=== PATIENT | female | born 1980 | race Caucasian/White ===

== ENCOUNTER 2019-06-18 00:10 | Day surgery (SDC) | payer OTHER, SELFPAY ==
[2019-06-11 14:06] VITALS: BMI 28.0
[2019-06-18 09:04] VITALS: BP 103/65; PULSE 65; RESP 16; TEMP 36.5; O2SAT 100
[2019-06-18] MEDS: LACTATED RINGERS 1,000 ML 150 ML IV CONT (09:29)
--- NOTE | 2019-06-18 09:34 | WPDANESEPPF ---
Anes - Initial Pre Proc Eval Procedure: Operation Date: 06/18/19 10:00 Proposed Procedures p Colonoscopy - Gómez Beaver MD Date/Time: 06/18/19 09:34 Surgeon: Gómez Beaver MD Pre Op Diagnosis: Diverticulitis Patient Data Age: 38 Gender: F Height: 4 ft 10 in Weight: 61.1 kg Last Vital Signs Temp 97.7 F 06/18/19 09:04 Pulse 65 06/18/19 09:04 Resp 16 06/18/19 09:04 BP 103/65 06/18/19 09:04 Pulse Ox 100 06/18/19 09:04 Allergies Allergy/AdvReac Type Severity Reaction Status Date / Time metoclopramide Allergy Mild DEPRESSION, Verified 06/18/19 09:15 IRRITABLE Home Medications Medication Instructions Recorded Confirmed Type bupropion HCl 150 mg 24 hr tablet, 150 mg PO QAM 04/27/19 06/18/19 History extended release Patient hx anesthesia problems: none Family hx anesthesia problems: none [facility] Past Medical History Medical History (Updated 06/18/19 @ 09:29 by Mariano Leahy MD) Anxiety Diverticulosis Social History Social History Smoking status: Never smoker Alcohol intake: never Gender identity (if verbalized by the patient): Female Anes - Eval Final PreProcedure Day of Procedure 06/18/19 09:34 Patient weight: normal Heart: regular rate and rhythm Lungs: clear to auscultation Airway: Mallampati scale class II Neurological: alert and oriented Last oral intake: >/= 8 hours ASA classification: II Emergent: no Anesthetic plan: proceed Anesthesia type and monitoring: general GIVS and standard monitoring Informed Consent: The patient's anesthetic plan and its attendant risks and benefits were discussed with the patient/family/POA. Questions were solicited and answers provided to the satisfaction of the patient/family/POA.
--- NOTE | 2019-06-18 09:39 | P.HP_ITS ---
History of Present Illness History of Present Illness Consent: Risks, benefits, and alternatives have been discussed and questions answered. Patient agrees to proceed with procedure. Chief complaint: Diverticulitis Narrative: Era Molina is a 38 year old female who recently had apparent diverticulitis with abnormality in the CT scan showing thickening in the sigmoid colon [facility] Past Medical History Medical History Anxiety Diverticulosis Family History Family History Grandparent Cerebrovascular accident Family history of lung cancer Other Family history of arthritis Social History Social History Smoking status: Never smoker Alcohol intake: never Gender identity (if verbalized by the patient): Female Meds Home Medications and Allergies Home Medications Medication Instructions Recorded Confirmed Type bupropion HCl 150 mg 24 hr tablet, 150 mg PO QAM 04/27/19 06/18/19 History extended release Allergies Allergy/AdvReac Type Severity Reaction Status Date / Time metoclopramide Allergy Mild DEPRESSION, Verified 06/18/19 09:15 IRRITABLE Vital Signs Vital Signs - 24 hr 06/18/19 09:04 Temperature 36.5 C Pulse Rate 65 Respiratory Rate 16 Blood Pressure 103/65 Pulse Oximetry 100 Exam Resp: Auscultation: clear to auscultation bilaterally Cardio: Rate: regular rate Rhythm: regular rhythm GI: GI Palp: Yes Soft to palpation and No Tenderness to palpation present (GI) Assessment and Plan Assessment and plan (1) Change in bowel habits: Code(s): R19.4 - Change in bowel habit Status: Acute Assessment and Plan: Colonoscopy with possible biopsy or polypectomy or cautery or injection of substances.
[2019-06-18 10:13] VITALS: BP 87/64; PULSE 70; RESP 20; O2SAT 100
[2019-06-18 10:23] VITALS: BP 97/50; PULSE 69; RESP 18; O2SAT 100
[2019-06-18 10:33] VITALS: BP 105/80; PULSE 67; RESP 20; O2SAT 100
== END 2019-06-18 10:47 | disposition home or self-care (01) ==
PROVIDERS: PCP Family Medicine; Visit Provider Internal Medicine Gastroenterology
PROC: 0DJD8ZZ Inspection of Lower Intestinal Tract, Via Natural or Artificial Opening Endoscopic (ICD-10-PCS; CPT 45378; principal; 2019-06-18 10:00)
DX: Z09 Encounter for follow-up examination after completed treatment for conditions other than malignant neoplasm (principal); R19.4 Change in bowel habit; K64.4 Residual hemorrhoidal skin tags; K57.30 Diverticulosis of large intestine without perforation or abscess without bleeding; Z87.19 Personal history of other diseases of the digestive system; F41.9 Anxiety disorder, unspecified
CPT/HCPCS: 45378; J2704; J7120

== ENCOUNTER 2019-06-29 16:00 | Emergency (ER) | payer OTHER, SELFPAY ==
[2019-06-29 16:10] VITALS: BP 106/69; PULSE 84; RESP 18; TEMP 37.4; O2SAT 99
--- NOTE | 2019-06-29 16:27 | ED.GENADULT ---
HPI - General Adult General Chief complaint: Upper Respiratory Infection Stated complaint: sore throat aches chills fever Time Seen by Provider: 06/29/19 16:48 Source: patient and RN notes reviewed Mode of arrival: ambulatory Limitations: no limitations History of Present Illness HPI narrative: This is a 38 years old female presented office for evaluation of sore throat since last night. Associated with fever, feeling achy, with a little cough. She took ibuprofen and Rubitussin for her symptoms. She did not receive influenza vaccine for the season. She does not smoke. Denies sick contact. Related Data Home Medications Medication Instructions Recorded Confirmed bupropion HCl 150 mg PO QAM 06/29/19 06/29/19 Allergies Allergy/AdvReac Type Severity Reaction Status Date / Time metoclopramide Allergy Mild DEPRESSION, Verified 06/18/19 09:15 IRRITABLE Review of Systems Review of Systems: Narrative: CONSTITUTIONAL: Reports fever, chills, sweats. ENT: Reports rhinorrhea, congestion, sore throat CARDIOVASCULAR: Denies chest pain RESPIRATORY: Denies dyspnea, wheezing. Reports little cough GASTROINTESTINAL: Denies abdominal pain, nausea, vomiting, diarrhea. GENITOURINARY: Denies urinary symptoms or discharge SKIN: Denies rash MUSCULOSKELETAL: Denies acute back pain NEUROLOGIC: Denies lightheaded PMFSH Past Medical History Medical History Anxiety Diverticulosis Family History Family History Grandparent Cerebrovascular accident Family history of lung cancer Other Family history of arthritis Social History Social History Smoking status: Never smoker Alcohol intake: never Gender identity (if verbalized by the patient): Female Comments At time of signature, I agree with nursing past medical, surgical, social and family history. There is no relevant family history pertinent to the presenting complaint. Exam Narrative: Exam Narrative: GENERAL: This is a well-nourished, well-developed patient,ill apparent but not in acute distress. EYES: Sclera clear/white. Vision is grossly intact. EARS: External ears normal, auditory canals clear and without drainage, TMs normal without perforation. Hearing grossly intact. NOSE: External nose normal with no obvious nasal discharge, nares without redness, no rhinorrhea. THROAT: Mucous membranes moist, posterior pharynx clear. NECK: Neck supple, non-tender without lymphadenopathy, masses or thyromegaly. CARDIOVASCULAR: Regular rate and rhythm without murmurs, gallops, or rubs. RESPIRATORY: Clear to auscultation. Breath sounds equal bilaterally. No wheezes, rales, or rhonchi. GASTROINTESTINAL: Abdomen soft, non-tender, nondistended. Bowel sounds are active. No guarding. SKIN: warm, intact with no suspicious lesions or rash, good texture and turgor. NEURO: awake, alert, and oriented to person, place and time. There were no obvious focal neurologic abnormalities. Steady gait [place] Coma Scale Eye Opening: Spontaneous 4 [place] Coma Scale Motor: Obeys Commands 6 [place] Coma Scale Verbal: Oriented 5 Course Vital Signs Vital signs: Vital Signs Temperature 99.4 F 06/29/19 16:10 Pulse Rate 84 06/29/19 16:10 Respiratory Rate 18 06/29/19 16:10 Blood Pressure 106/69 06/29/19 16:10 Pulse Oximetry 99 06/29/19 16:10 Temperature 99.4 F 06/29/19 16:10 Pulse Rate 84 06/29/19 16:10 Respiratory Rate 18 06/29/19 16:10 Blood Pressure 106/69 06/29/19 16:10 Pulse Oximetry 99 06/29/19 16:10 Medical Decision Making MDM Narrative Medical decision making narrative: Discharge instructions reviewed with patient, as well as provided in writing per nursing staff. The instructions also include specific and strict return/GO TO THE ER as well as f/u information. All questions hav
== END 2019-06-29 16:55 | disposition home or self-care (01) ==
PROVIDERS: Emergency Provider Nurse Practitioner; PCP Family Medicine
DX: J11.1 Influenza due to unidentified influenza virus with other respiratory manifestations (principal)
CPT/HCPCS: 87081; 87804; 87880; 99213; G0463

== ENCOUNTER → 2019-07-02 15:18 | Outpatient (CLI) | payer OTHER, SELFPAY ==
--- NOTE | ~2019-07-02 | US_ITS ---
EXAMINATION: US pelvic complete w TV DATE: 07/02/2019 15:33 INDICATION: Ovarian cyst. Bilateral adnexal pain. Comparison:Ultrasound dated 01/03/2019 TECHNIQUE: Multiple transabdominal and endovaginal sonographic images of the pelvis performed. FINDINGS: The uterus measures 6.4 x 3.8 x 4.2 cm. Uterus is retroverted. The endometrial complex sandie ures 7 mm. The right ovary measures 2.2 x 2.5 x 3.1 cm and the left ovary measures 3.1 x 2 x 2 cm. There are sm all follicles in each ovary. There is no free fluid in the pelvis. There are no abnormal masses seen on either side. IMPRESSION: 1. Unremarkable pelvic ultrasound. Reviewed, dictated and finalized at location A. 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
== END ==
PROVIDERS: PCP Family Medicine; Visit Provider Obstetrics & Gynecology
DX: N83.209 Unspecified ovarian cyst, unspecified side (principal)
CPT/HCPCS: 76830; 76856

== ENCOUNTER → 2019-12-01 12:28 | Outpatient (CLI) | payer OTHER, SELFPAY ==
--- NOTE | ~2019-12-01 | XR_ITS ---
XR cervical spine 4-5V DATE: 12/01/2019 13:57 INDICATION: Neck pain TECHNIQUE: Standing AP, lateral, open-mouth, swimmer views COMPARISON: None FINDINGS: There is reversal of cervical curvature on lateral view. C1 and C2 are normally aligned and the odontoid process is intact. No fracture or dislocation or lock ed facet or prevertebral soft tissue swelling. Cervical interspaces are preserved. IMPRESSION: Reversal of cervical curvature Reviewed, dictated and finalized at location B.
--- NOTE | ~2019-12-01 | XR_ITS ---
XR thoracic spine 2V DATE: 12/01/2019 13:57 INDICATION: Back pain TECHNIQUE: Standing AP and lateral views COMPARISON: 12/01/2019 cervical spine FINDINGS: Minimal upper thoracic dextroscoliosis. There is mild levoscoliosis of the mid and lower th oracic spine. No fracture or dislocation or bone destruction. The thoracic pedicles are intact. No paraspinal soft tissue thickening. Surgical clips overlie the right upper quadrant, likely due to cholecystectomy. IMPRESSION: Mild thoracic scoliosis Reviewed, dictated and finalized at location B. IMPRESSION: Mild thoracic scoliosis
== END ==
PROVIDERS: Visit Provider Nurse Practitioner Family
DX: M54.9 Dorsalgia, unspecified (principal); M41.9 Scoliosis, unspecified
CPT/HCPCS: 72050; 72070

== ENCOUNTER 2020-01-19 16:49 | Outpatient (CLI) | payer OTHER, SELFPAY ==
--- NOTE | ~2020-01-19 | CT_ITS ---
EXAMINATION: CT abdomen pelvis w con EXAM DATE: 01/19/2020 17:22 INDICATION: Left lower quadrant pain. TECHNIQUE: Spiral CT of the abdomen and pelvis was performed following intravenous injection of 100 m L Omnipaque 350. Axial, coronal and sagittal images were reviewed. The dose-length product (DLP) fo r this examination was 485.19 mGy-cm. The exposure was tailored according to patient size (auto mA e xposure control), and iterative reconstruction (ASIR) was used as additional dose reduction technique . There is no prior study for comparison. FINDINGS: There is right liver lobe 1 cm lesion with small region peripheral nodular enhancement, a h emangioma, size unchanged compared to prior study. The liver, spleen, adrenal glands and pancreas ar e otherwise unremarkable. There are cholecystectomy clips. Portal and splenic veins are patent. Ki dneys enhance symmetrically. There is no hydronephrosis. The uterus is retroverted and morphologic ally normal. The ovaries are normal in size. The bladder is unremarkable. There is no retroperitone al or pelvic lymphadenopathy. The appendix is normal. The stomach and small bowel are unremarkable. There is mild sigmoid colonic diverticulosis. There is no adjacent inflammatory change to suggest diverticulitis. No free intrape ritoneal gas. The heart is normal in size. There are no pericardial or pleural effusions. The katherin g bases are unremarkable. The bones are unremarkable. IMPRESSION: 1. No acute intra-abdominal findings. 2. Mild sigmoid diverticulosis. 3. Small liver hemangioma. Reviewed, dictated and finalized at location A.
== END 2020-01-19 16:50 | disposition home or self-care (01) ==
PROVIDERS: PCP Family Medicine; Visit Provider Nurse Practitioner Family
DX: R10.32 Left lower quadrant pain (principal); K57.30 Diverticulosis of large intestine without perforation or abscess without bleeding
CPT/HCPCS: 74177; Q9967

== ENCOUNTER → 2020-09-15 11:18 | Outpatient (CLI) | payer OTHER, SELFPAY ==
--- NOTE | ~2020-09-15 | MM_ITS ---
EXAMINATION: MM screening augustina BI w luis enrique HISTORY: Screening TECHNIQUE: Craniocaudal and mediolateral oblique 3-D tomosynthesis images were obtained and synthetic 2-D images were generated. CAD analysis was submitted and interpreted. COMPARISON: No prior mammogram is available for comparison at this institution. BREAST PARENCHYMAL COMPOSITION: The breasts are heterogeneously dense, which may obscure small masses . FINDINGS: There is no evidence of suspicious mass, calcification, or architectural distortion to sugg est malignancy in either breast. There has been no suspicious interval change. IMPRESSION: 1. No mammographic evidence of malignancy. 2. Recommend routine screening mammography in one year. BI-RADS Category 1: Negative Reviewed, dictated and finalized at location A.
== END ==
PROVIDERS: PCP Family Medicine; Visit Provider Nurse Practitioner Family
DX: Z12.31 Encounter for screening mammogram for malignant neoplasm of breast (principal)
CPT/HCPCS: 77063; 77067

== ENCOUNTER → 2021-06-01 13:30 | Outpatient (CLI) | payer OTHER, SELFPAY ==
--- NOTE | ~2021-06-01 | XR_ITS ---
EXAMINATION: XR finger 1st RT min 2V INDICATION: Right wrist and finger pain TECHNIQUE: Three views of the right first finger are obtained. COMPARISON: None available FINDINGS: Bone alignment is normal. There is no fracture. The joint spaces are maintained. The soft t issues are unremarkable. IMPRESSION: 1. No acute osseous abnormality. Reviewed, dictated and finalized at location F. NOMIST
--- NOTE | ~2021-06-01 | XR_ITS ---
XR wrist RT 2V DATE: 06/01/2021 13:40 INDICATION: Right wrist pain TECHNIQUE: AP and lateral views COMPARISON: None FINDINGS: No fracture or dislocation, periosteal reaction or bone destruction. No erosive changes. Joint spaces are well preserved. IMPRESSION: Negative Reviewed, dictated and finalized at location A. RNAL RECRUITER IMPRESSION: Negative
== END ==
PROVIDERS: PCP Family Medicine; Visit Provider Nurse Practitioner Family
DX: M25.531 Pain in right wrist (principal); M25.541 Pain in joints of right hand
CPT/HCPCS: 73100; 73140

== ENCOUNTER 2021-11-12 10:57 | Emergency (ER) | payer OTHER, SELFPAY ==
--- NOTE | ~2021-11-12 | CT_ITS ---
EXAMINATION: CT abdomen pelvis wo con DATE: 11/12/2021 12:15 INDICATION: Lower abdominal pain, groin pain TECHNIQUE: Computed tomography (CT) of the abdomen and pelvis was performed without intravenous contr ast. Automated exposure control and iterative reconstruction technique were employed. Exam dose: 430 .92 mGy-cm total exam DLP. COMPARISON: 01/29/2020 CT abdomen pelvis FINDINGS: The lung bases are clear. Normal heart size. No pericardial or pleural effusion. Status post cholecystectomy. No bile duct or pancreatic duct dilatation. No hepatic, splenic, pancreatic, adrenal or renal space-occupying mass lesion. No urinary tract calcu carlos or hydroureteronephrosis. Normal caliber of the abdominal aorta. No intraperitoneal or retroperitoneal or pelvic mass lesion or adenopathy or ascites. Uterus, adnexal areas and urinary bladder are unremarkable. There are diverticula of the left and right colon. There is chronic-appearing of the wall of the prox imal sigmoid colon in the left lower abdomen, with surrounding pericolic soft tissue stranding in the region of some diverticula, consistent with uncomplicated sigmoid diverticulitis. No bowel obstructi on or abscess or intraperitoneal free air is noted. IMPRESSION: Proximal sigmoid acute diverticulitis without abscess Status post cholecystectomy Reviewed, dictated and finalized at Location A. Reviewed, dictated and finalized at location A.
[2021-11-12 11:05] VITALS: BP 109/69; PULSE 80; RESP 18; TEMP 36.3; O2SAT 97
[2021-11-12 11:07] VITALS: BP 109/69; PULSE 84; RESP 18; TEMP 36.8; O2SAT 98
--- NOTE | 2021-11-12 11:29 | ECG_ITS ---
Measurements Intervals [place] Rate: 68 P: 53 CO: 129 QRS: 72 QRSD: 100 T: 45 QT: 400 QTc: 426 Interpretive Statements SINUS RHYTHM DELAYED PRECORDIAL R/S TRANSITION BORDERLINE T WAVE ABNORMALITY- ANTERIOR LEADS BORDERLINE ECG Electronically Signed On 11-12-2021 15:19:27 CDT by Octavio Leiva D.O.
[2021-11-12 11:50] LABS: Appearance Urine Clear (Clear); Bilirubin Urine Negative (Negative); Color Urine Light Yellow (Yellow); Glucose Urine UA Negative (Negative); Ketones Urine Negative (Negative); Leukocyte Esterase Ur Negative (Negative); Nitrate Urine Negative (Negative); Protein Urine Negative (Negative); Urobilinogen Urine 0.2 mg/dL (0.2-1.0)
[2021-11-12 11:54] LABS: Basophils Absolute Auto 0.04 K/mm3 (0.00-0.10); Basophils Percent Auto 0.4 % (0.0-1.0); Eosinophils Absolute Auto 0.04 K/mm3 (0.02-0.50); Eosinophils Percent Auto 0.4 % (1.0-6.0); Hematocrit 37.4 % (35.0-49.0); Hemoglobin 12.6 g/dL (12.0-15.0); Immature Granulocyte Absolute 0.06 K/mm3 (0.00-0.00); Immature Granulocyte Percent A 0.6 % (0.0-0.0); Lymphocytes Absolute Auto 1.39 K/mm3 (1.10-4.50); Lymphocytes Percent Auto 13.4 % (18.0-42.0); Mean Corpuscular HGB Conc 33.7 g/dL (32.0-36.0); Mean Corpuscular Hemoglobin 31.4 pg (27.0-31.0); Mean Corpuscular Volume 93.3 fL (78.0-102.0); Mean Platelet Volume 9.9 fl (9.2-11.8); Monocytes Absolute Auto 0.96 K/mm3 (0.10-0.90); Monocytes Percent Auto 9.2 % (2.0-11.0); Neutrophils Absolute Auto 7.9 K/mm3 (1.7-7.2); Platelet Count Result 198 K/mm3 (150-420); Red Blood Count 4.01 M/mm3 (4.20-5.40); White Blood Count 10.4 K/mm3 (4.8-10.8)
[2021-11-12 11:56] LABS: Add Urine Microscopic? YES; Bacteria Urine Trace /hpf; Blood Urine Trace-Intact (Negative); Pregnancy On Board Control Positive; RBC Urine 0-2 /hpf (0-2); Squamous Epithelial Cell Urine Few /hpf (Few); Urine Pregnancy Test Negative; WBC Urine 0-3 /hpf (0-3)
[2021-11-12] MEDS: MORPHINE SULFATE (*CRX) 4 MG/ML INJ IV PUSH (11:57)
[2021-11-12] MEDS: ONDANSETRON INJ 4 MG/2 ML VIAL IV PUSH (11:57)
[2021-11-12] MEDS: SODIUM CHLORIDE 0.9% IV 1,000 ML 999 ML IV CONT ×2 (11:58→13:15)
[2021-11-12 12:03] LABS: INR 0.9; Partial Thromboplastin Time 27.6 SEC (23.90-30.70); Prothrombin Time 10.3 Seconds (9.50-12.10)
[2021-11-12 12:07] LABS: Lactic Acid Reflex 0.5 mmol/L (0.4-2.0)
[2021-11-12 12:13] LABS: Alanine Aminotransferase 25 U/L (14-59); Albumin Level 3.7 g/dL (3.4-5.0); Alkaline Phosphatase 83 U/L (46-116); Anion Gap 7 mmol/L (8-16); Aspartate Amino Transferase 18 U/L (15-37); Bilirubin,Total 0.7 mg/dL (0.00-1.00); Blood Urea Nitrogen 15 mg/dL (7-18); Calcium 8.7 mg/dL (8.5-10.1); Carbon Dioxide 28 mmol/L (21-32); Chloride 103 mmol/L (98-108); Estimated Glomerular Filt Rate > 60; Glucose 91 mg/dL (70-99); Lipase 57 U/L (73-393); Osmolality Calculated 286 mOsm/kg (285-295); Potassium 3.8 mmol/L (3.5-5.1); Sodium 138 mmol/L (136-145); Total Protein 7.1 g/dL (6.4-8.2); Troponin I 4.3 ng/L (0.00-60.4)
--- NOTE | 2021-11-12 12:39 | PC.NURSE ---
pt resting per cot. mom at bedside. call lopez in reach.
[2021-11-12 12:45] VITALS: BP 124/75; PULSE 74; RESP 20; O2SAT 97
[2021-11-12] MEDS: HYDROmorphone HCL INJ (*CRX) 2 MG/ML VIAL 0.5 MG IV PUSH (13:03)
[2021-11-12 13:16] VITALS: BP 120/75; PULSE 78; RESP 20; TEMP 36.9; O2SAT 97
--- NOTE | 2021-11-12 13:16 | ED.ABDPAIN ---
HPI - Abdominal Pain General Chief Complaint: Abdominal Pain Stated Complaint: ABDOMINAL PAIN Source: patient and family Mode of arrival: ambulatory History of Present Illness HPI narrative: this is a 40-year-old female with a history of diverticulitis presents with abdominal pain localizing to the left lower quadrant currently her vitals are stable patient is afebrile there is no chest pain no shortness of breath no flank pain no dysuria no hematuria does have some nausea with no vomiting no diarrhea or constipation. MD elicited complaint: abdominal pain Pertinent past history: diverticulitis Onset (ago): day(s) Pain Consistency: constant Location: LLQ Severity: moderate Pain scale (0-10): 8 Quality: aching Radiation: none Migration to: no migration Exacerbating factors: nothing and eating Relieving factors: nothing Related Data Allergies Allergy/AdvReac Type Severity Reaction Status Date / Time metoclopramide Allergy Mild DEPRESSION, Verified 05/31/21 13:29 IRRITABLE Review of Systems Review of Systems: All systems reviewed & are unremarkable except as noted in HPI and below PMFSH Past Medical History Medical History Acute hemorrhoid Anxiety BMI 31.0-31.9,adult Diverticulosis Family History Family History Grandparent Cerebrovascular accident Family history of lung cancer Father No problems noted. Mother Hypertension Sibling No problems noted. 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 Gender identity (if verbalized by the patient): Female Exam Const: General: healthy appearing and no acute distress Limitations: no limitations HENMT: Head: normal to inspection Face and sinus: normal facial exam Mouth: Yes Normal oral and palatal mucosa present Eyes: Conjunctivae: conjunctivae normal Pupils: Equal, round and reactive pupils present EOM: EOMs intact bilaterally Direct Ophthalmoscopy: no photophobia Neck: Neck: normal visual inspection, no lymphadenopathy and no meningeal signs Chest: Chest palpation & inspection: normal inspection of the chest Resp: Effort & Inspection: normal respiratory effort Auscultation: clear to auscultation bilaterally Cardio: Rate: regular rate Rhythm: regular rhythm GI: GI Palp: Yes Soft to palpation and Yes Rebound tenderness present ( Tender left lower quadrant with palpation) Auscultation: normal bowel sounds : General: Yes bladder normal to palpation Urinary Catheter: Urinary Catheter: patent and draining Back/Spine/Pelvis: Back: no CVA tenderness Skin: General skin exam: normal color Rashes: no rashes Neuro: General: patient oriented x3, moves all extremities, no meningeal signs and no focal motor deficits Extrem: General: normal to inspection, no clubbing, cyanosis or edema and no pedal edema Psych: Mental Status: mental status grossly normal Affect: normal affect Course Course Emergency Course: labs reviewed EKG reviewed with patient and CT scan reviewed which shows acute diverticulitis patient received IV fluids and pain medication initially received 4mg of morphine which helped reduce her pain level but subsequently she had an increase in pain despite the morphine, and Dilaudid was given to control pain. Discussed admission for pain control, patient declined at this time and will be sending Cipro and Flagyl along with pain medication to her local pharmacy. Vital Signs Vital signs: Vital Signs Temperature 36.3 C L 11/12/21 11:05 Pulse Rate 80 11/12/21 11:05 Respiratory Rate 18 11/12/21 11:05 Blood Pressure 109/
== END 2021-11-12 13:25 | disposition home or self-care (01) ==
PROVIDERS: Emergency Provider Emergency Medicine; PCP Family Medicine
DX: K57.92 Diverticulitis of intestine, part unspecified, without perforation or abscess without bleeding (principal)
CPT/HCPCS: 36415; 74176; 80053; 81001; 81025; 83605; 83690; 84484; 85025; 85610; 85730; 93005; 96361; 96374; 96375; 99284; J1170; J2270; J2405; J7030

== ENCOUNTER 2022-02-15 10:53 | Emergency (ER) | payer OTHER, SELFPAY ==
--- NOTE | ~2022-02-15 | CT_ITS ---
EXAMINATION: CT abdomen pelvis wo con DATE: 02/15/2022 12:42 INDICATION: Lower abdominal pain. TECHNIQUE: Computed tomography (CT) of the abdomen and pelvis was performed without intravenous contr ast. Automated exposure control and iterative reconstruction technique were employed. The dose-length product was 417.85 mGy-cm. COMPARISON: CT abdomen and pelvis 11/12/2021 FINDINGS: The visualized portions of the lung bases demonstrate a calcified left lung nodule, consist ent with old granulomatous disease. No pleural effusion. The heart size is normal. No pericardial eff usion. The liver is normal. There are changes of cholecystectomy. The spleen, pancreas, adrenal gland s, and kidneys are normal. There is no urolithiasis. There are diverticula in the colon. There is fat stranding around the sigmoid colon with punctate foci of extraluminal gas, consistent with diverticu litis. The appendix is normal. There are no pathologically enlarged lymph nodes. There is physiologic fluid in the pelvis. The bones are unremarkable. IMPRESSION: 1. Sigmoid diverticulitis with microperforation. No abscess. Reviewed, dictated and finalized at location B.
[2022-02-15 11:08] VITALS: BP 94/57; PULSE 81; RESP 18; TEMP 36.5; O2SAT 100
[2022-02-15] MEDS: SODIUM CHLORIDE 0.9% IV 1,000 ML 999 ML IV CONT (12:01)
[2022-02-15 12:02] LABS: Basophils Absolute Auto 0.02 K/mm3 (0.00-0.10); Basophils Percent Auto 0.3 % (0.0-1.0); Eosinophils Absolute Auto 0.04 K/mm3 (0.02-0.50); Eosinophils Percent Auto 0.6 % (1.0-6.0); Hematocrit 38.5 % (35.0-49.0); Hemoglobin 12.8 g/dL (12.0-15.0); Immature Granulocyte Absolute 0.03 K/mm3 (0.00-0.00); Immature Granulocyte Percent A 0.5 % (0.0-0.0); Lymphocytes Absolute Auto 1.38 K/mm3 (1.10-4.50); Lymphocytes Percent Auto 21.2 % (18.0-42.0); Mean Corpuscular HGB Conc 33.2 g/dL (32.0-36.0); Mean Corpuscular Hemoglobin 31.5 pg (27.0-31.0); Mean Corpuscular Volume 94.8 fL (78.0-102.0); Mean Platelet Volume 10.1 fl (9.2-11.8); Monocytes Absolute Auto 0.65 K/mm3 (0.10-0.90); Neutrophils Absolute Auto 4.4 K/mm3 (1.7-7.2); Neutrophils Percent Auto 67.4 % (50.0-70.0); Platelet Count Result 154 K/mm3 (150-420); Red Blood Count 4.06 M/mm3 (4.20-5.40); Red Cell Distribution Width 11.8 % (11.6-14.4); White Blood Count 6.5 K/mm3 (4.8-10.8)
[2022-02-15] MEDS: PANTOPRAZOLE SODIUM IV 40 MG VIAL IV PUSH (12:02)
[2022-02-15 12:08] LABS: Appearance Urine Clear (Clear); Bilirubin Urine Negative (Negative); Glucose Urine UA Negative (Negative); Ketones Urine Negative (Negative); Leukocyte Esterase Ur Negative LEU/UL (Negative); Nitrate Urine Negative (Negative); Protein Urine Negative (Negative); Specific Grav Ur 1.015 (1.010-1.020); Urobilinogen Urine 0.2 mg/dL (0.2-1.0)
[2022-02-15 12:12] LABS: Add Urine Microscopic? YES; Bacteria Urine 1+ /hpf; Blood Urine Trace-Intact (Negative); Color Urine Light Yellow (Yellow); RBC Urine 0-2 /hpf (0-2); Squamous Epithelial Cell Urine Few /hpf (Few); WBC Urine None seen /hpf (0-3)
[2022-02-15 12:23] LABS: Lactic Acid Reflex 0.6 mmol/L (0.4-2.0); SPREG INTERNAL CONTROL Positive; Serum Qual hCG Negative
[2022-02-15 12:30] LABS: Alanine Aminotransferase 87 U/L (14-59); Albumin Level 3.9 g/dL (3.4-5.0); Alkaline Phosphatase 81 U/L (46-116); Anion Gap 8 mmol/L (8-16); Aspartate Amino Transferase 114 U/L (15-37); Bilirubin,Total 0.6 mg/dL (0.00-1.00); Blood Urea Nitrogen 16 mg/dL (7-18); Calcium 8.9 mg/dL (8.5-10.1); Carbon Dioxide 28 mmol/L (21-32); Chloride 103 mmol/L (98-108); Estimated Glomerular Filt Rate 59; Glucose 81 mg/dL (70-99); Lipase 99 U/L (73-393); Osmolality Calculated 288 mOsm/kg (285-295); Potassium 4.2 mmol/L (3.5-5.1); Sodium 139 mmol/L (136-145); Total Protein 7.1 g/dL (6.4-8.2)
[2022-02-15 13:12] VITALS: BP 94/52; PULSE 66; RESP 18; O2SAT 99
[2022-02-15 13:14] VITALS: BP 94/52; PULSE 66; RESP 18; O2SAT 99
--- NOTE | 2022-02-15 13:51 | ED.ABDPAIN ---
HPI - Abdominal Pain General Chief Complaint: Abdominal Pain Stated Complaint: Diverticulitis Time Seen by Provider: 02/15/22 10:58 Source: patient, family and RN notes reviewed Mode of arrival: ambulatory Limitations: no limitations History of Present Illness MD elicited complaint: abdominal pain Pertinent past history: diverticulitis Onset (ago): day(s) (2) Pain Consistency: colicky Location: diffuse Severity: moderate Pain scale (0-10): 6 Quality: cramping and aching Radiation: back Migration to: no migration Exacerbating factors: nothing Relieving factors: nothing Associated symptoms: nausea Related Data Patient : No Home Medications Medication Instructions Recorded Confirmed bupropion HCl 150 mg tablet,12 hr 150 mg PO DAILY 11/23/21 02/15/22 sustained-release (Wellbutrin SR) Allergies Allergy/AdvReac Type Severity Reaction Status Date / Time metoclopramide Allergy Mild DEPRESSION, Verified 11/28/21 08:56 IRRITABLE Review of Systems Review of Systems: All systems reviewed & are unremarkable except as noted in HPI and below Constitutional: Constitutional: Reports no additional constitutional complaints Eyes: Eyes: Reports no additional eye complaints ENT: Reports system reviewed and no additional complaints, except as documented Cardiovascular: Cardiovascular: Reports no additional cardiovascular complaints Respiratory: Respiratory: Reports no additional respiratory complaints Gastrointestinal: Gastrointestinal: Reports abdominal pain and Reports nausea Genitourinary: Genitourinary: Reports no additional female genitourinary complaints Musculoskeletal: Musculoskeletal: Reports no additional musculoskeletal complaints Integumentary/Breasts: Skin/Breast: Reports system reviewed and no additional complaints, except as docu Neurologic: Reports system reviewed and no additional complaints, except as documented Psychiatric: Psychiatric: Reports no additional psychiatric complaints Endocrine: Endocrine: Reports no additional endocrine complaints Hematologic/Lymphatic: Hematologic/Lymphatic: Reports no additional hematologic/lymphatic complaints Allergic/Immunologic: Allergic/Immunologic: Reports no additional allergic/immunologic complaints [facility] Past Medical History Medical History Acute hemorrhoid Anxiety BMI 31.0-31.9,adult Diverticulitis Diverticulosis Overweight with body mass index (BMI) of 28 to 28.9 in adult Family History Family History Grandparent Cerebrovascular accident Family history of lung cancer Father No problems noted. Mother Hypertension Sibling No problems noted. 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 Gender identity (if verbalized by the patient): Female Exam Const: General: alert and well nourished Nutritional Appearance: well nourished Orientation/consciousness: patient oriented x3 Limitations: no limitations HENMT: Head: normal to inspection Ears: external ears normal, TM's normal bilaterally and EAC's normal Face/Nose/Sinus: Normal external nose present, Normal nares present, normal facial exam and sinuses nontender Face and sinus: normal facial exam and sinuses nontender Mouth: Yes Normal oral and palatal mucosa present and Yes moist mucous membranes Teeth and gingiva: dentition normal Throat: posterior oropharynx normal Eyes: Conjunctivae: conjunctivae normal Pupils: Equal, round and reactive pupils present EOM: EOMs intact bilaterally Neck: Neck: normal visual inspection, no lymphadenopathy and no meningeal signs
[2022-02-15 14:14] VITALS: BP 108/62; PULSE 72; RESP 20; TEMP 36.6; O2SAT 100
[2022-02-15 14:17] VITALS: BP 108/62; PULSE 75; RESP 16; O2SAT 100
--- NOTE | 2022-02-15 14:55 | PC.NURSE ---
1414 called to give report, awaiting call back from cam russ. 1430 no call , return call for report. nurse not awailable. 1456 call placed to give report. cam Grace given report.
== END 2022-02-15 15:13 | disposition short-term general hospital (02) ==
PROVIDERS: Emergency Provider Emergency Medicine; PCP Family Medicine
DX: K57.92 Diverticulitis of intestine, part unspecified, without perforation or abscess without bleeding (principal)
CPT/HCPCS: 36415; 74176; 80053; 81001; 83605; 83690; 84703; 85025; 96361; 96374; 99284; 99285; C9113; J7030

== ENCOUNTER 2022-02-15 15:51 | Observation (INO) | payer OTHER, SELFPAY ==
--- NOTE | 2022-02-15 16:10 | PM.IMHP ---
H&P: HPI History of Present Illness Date/Time: 02/15/22 16:10 Chief Complaint: Diverticulitis with microperforation. Narrative: This is a a very pleasant 41-year-old female with history of diverticulitis who is being directly admitted to the medical floor for treatment of diverticulitis with microperforation found on CT scan at an outside facility. Two days ago on Friday evening she developed abdominal distension and bloating. By the following morning she was experiencing diffuse abdominal discomfort as though she had significant gas that she was unable to pass. She passed a small yet normal bowel movement yesterday and but that did not seem to help. These symptoms are similar to when she had diverticulitis in the past and she spoke with her doctor on the phone today and she was instructed to the ER. CT of the abdomen and pelvis done at [facility] showed sigmoid diverticulitis with microperforation (no abscess) and she is being directly admitted for IV antibiotics and surgery consultation. This will be her 4th bout of diverticulitis, the 1st being about 3 years ago. She had 2 episodes of diverticulitis just this summer. She denies fever, chills, and sweats. She has not noticed any blood or mucus in the stools. No significant nausea or vomiting. Review of Systems Review of Systems: Twelve systems were reviewed and are negative except for as per HPI. [facility] Past Medical History Medical History (Updated 02/15/22 @ 18:13 by Emiliana Pavon PA-C) Anxiety Diverticulitis Diverticulosis Surgical History Surgical History (Updated 02/15/22 @ 18:07 by Emiliana Pavon PA-C) History of cholecystectomy Family History Family History Grandparent Cerebrovascular accident Family history of lung cancer Father No problems noted. Mother Hypertension Sibling No problems noted. Other Family history of arthritis Social History Social History (Updated 02/15/22 @ 18:07 by Emiliana Pavon PA-C) Social History: Surrogate medical decision maker: Terrell Tracy, spouse. Code status: Full code. Smoking status: Never smoker Second hand tobacco smoke exposure: No Alcohol intake: current Drinks per week: 6 Substance use: never Substance use type: does not use Additional living arrangements comments: Lives in [place] with her and 2 children. 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: No Meds Home Medications and Allergies Home Medications Medication Instructions Recorded Confirmed Type oxycodone-acetaminophen 5 mg-325 1 tablet PO Q6H PRN pain #20 tabs 11/12/21 02/15/22 Rx mg tablet (Percocet) bupropion HCl 150 mg tablet,12 hr 150 mg PO DAILY 11/23/21 02/15/22 History sustained-release (Wellbutrin SR) Allergies Allergy/AdvReac Type Severity Reaction Status Date / Time metoclopramide Allergy Mild DEPRESSION, Verified 02/15/22 16:32 IRRITABLE Exam Narrative: General: Well-developed female supine in bed in no distress. Weight: 64.9 kilograms. HEENT: PERRL, EOMI. Sclera anicteric. Tacky mucous membranes. Neck: Supple. Respiratory: Lungs are clear to auscultation bilaterally. Cardiovascular: Regular rate and rhythm with S1-S2. Gastrointestinal: Abdomen is soft and slightly distended with positive bowel sounds. She is tender to palpation and percussion, mainly in the left lower quadrant. No guarding or rebound tenderness. Skin: Warm and dry. Extremities: No cyanosis, clubbing, or edema. Radial and pedal pulses intact. Neurological: Alert. Cranial nerves 2-12 are grossly intact. No gross focal deficits to casual conversation. Psychiatric: Pleasant and cooperative with normal mood and affect. Judgment and insight intact. H&P: Results Labs Labs: Pertinent labs obtained at outside facility: WBC 6.5, hemoglobin 12.
--- NOTE | 2022-02-15 16:24 | ADMGEN ---
This patient, Era Molina, was admitted to 2 Medical Room 254-01. Patient/family oriented to hospital policies and general routines including ID bracelet, bed and alarms, visiting hours, pain management, procedures, bathroom and other care routines, personal items, smoking policy, room service/diet, and visiting hours. Information on how to activate the Rapid Response Team has been discussed. Patient/Family are encouraged to report perceived risks to care and to ask questions if they do not understand what they are told or what they should do.
[2022-02-15 16:25] VITALS: BP 105/58; PULSE 78; RESP 14; TEMP 36.5; O2SAT 100
[2022-02-15 17:00] VITALS: BMI 20.5
[2022-02-15] MEDS: ACETAMINOPHEN 325 MG TABLET 650 MG PO (17:06)
[2022-02-15] MEDS: SODIUM CHLORIDE 0.9% IV 1,000 ML 100 ML IV CONT (17:09)
[2022-02-15 17:34] VITALS: O2SAT 97
--- NOTE | 2022-02-15 19:26 | PM.CNGS ---
Assessment and Plan Assessment and plan (1) Perforation of sigmoid colon due to diverticulitis: Code(s): K57.20 - Diverticulitis of large intestine with perforation and abscess without bleeding Status: Acute Assessment and Plan: I have reviewed the CT and discussed the findings with the patient. She has evidence of acute diverticulitis with micro perforation. She has been started on broad-spectrum IV antibiotics and is on a clear liquid diet. Will continue to monitor with serial abdominal exams and repeat labs. If her pain is improving, will start to slowly advanced diet and possibly discharge within the next couple days. Patient has had a recent colonoscopy, therefore I do not think this will need to be repeated unless there are any other new or concerning findings. She has had multiple episodes of diverticulitis over the past 3 years. I discussed that an elective sigmoid resection to prevent recurrent diverticulitis could be curative but will have to be based on the severity and frequency of her symptoms and ultimately will be her choice. Will continue to follow along with patient during her hospitalization and she can follow up with me as an outpatient if she wishes to discuss surgery in further detail. History of Present Illness Consult details Consult date: 02/15/22 Reason for consult: other ( Diverticulitis) Narrative: this is a 41-year-old woman who I am asked to see for acute diverticulitis with microperforation. She presented to the emergency department in [place] this afternoon and was then transferred to [facility] for further treatment. She has been experiencing lower abdominal pain for the past 2-3 days. Her pain was slowly progressing and she felt like this was likely going to be another episode of diverticulitis. She just had an episode of diverticulitis about 3 months ago and was treated with an oral course of antibiotics as an outpatient. She also had her 1st episode of diverticulitis about 3 years ago. She did have a colonoscopy in June of 2019. She is denying any fevers or nausea or vomiting. The CT was performed in the emergency department in [place] in this showed evidence of acute diverticulitis with micro perforation. She has been started on IV antibiotics and is currently on a clear liquid diet. She is still experiencing some pain but states that she feels comfortable while lying still. She is concerned that this will continue to happen and is interested in considering an elective surgery sometime in the future to prevent recurrent diverticulitis. She states that her father had problems with diverticulitis and eventually had to have emergency surgery that lasted about 6 hours. Review of Systems Review of Systems: All systems reviewed & are unremarkable except as noted in HPI and below Constitutional: Constitutional: Denies chills and Denies fever(s) Eyes: Eyes: Denies change in vision ENT: Denies hearing loss, Denies neck pain and Denies sore throat Cardiovascular: Cardiovascular: Denies chest pain and Denies dyspnea Respiratory: Respiratory: Denies cough, Denies dyspnea and Denies wheezing Genitourinary: Genitourinary: Denies hematuria and Denies dysuria Musculoskeletal: Musculoskeletal: Denies arthralgias, Denies joint swelling and Denies neck pain Allergic/Immunologic: Allergic/Immunologic: Denies wheezing [facility] Past Medical History Medical History (Updated 02/15/22 @ 18:13 by Emiliana Pavon PA-C) Anxiety Diverticulitis Diverticulosis Surgical History Surgical History (Updated 02/15/22 @ 18:07 by Emiliana Pavon PA-C) History of cholecystectomy Family History Family History Grandparent Cerebrovascular accident Family history of lung cancer Father No problems noted. Mother Hypertension Sibling No problems noted. Other Family history of arthritis Social History S
[2022-02-15] MEDS: HYDROcodone/acetaminophen (*CRX) 5-325 MG TABLET 1 TAB PO (21:51)
[2022-02-15 22:34] VITALS: BP 101/64; PULSE 66; RESP 20; TEMP 36.3; O2SAT 99
[2022-02-16] MEDS: HYDROcodone/acetaminophen (*CRX) 5-325 MG TABLET 1 TAB PO (02:52)
--- NOTE | 2022-02-16 04:44 | PC.NURSE ---
Patient continues to refuse blood draws, patient teaching was done to educate patient why labs need to be taken but she still refused.
[2022-02-16 06:00] VITALS: BP 113/65; PULSE 71; RESP 21; TEMP 36.2; O2SAT 100
[2022-02-16 07:04] LABS: Glucose Point of Care 77 mg/dl (65-105)
[2022-02-16] MEDS: DEXTROSE 50% 25 GM/50 ML SYRINGE IV PUSH (07:16)
[2022-02-16] MEDS: buPROPion HCL XL (24 HR) 150 MG TABCR PO (08:24)
[2022-02-16 09:50] LABS: Basophils Percent Auto 0.3 % (0.2-1.2); Eosinophils Percent Auto 0.1 % (0-4.4); Hematocrit 35.2 % (37.0-47.0); Hemoglobin 11.7 g/dL (12.0-15.0); Immature Granulocyte Absolute 0.04 K/mm3 (0.00-0.031); Immature Granulocyte Percent A 0.5 % (0-0.5); Immature Platelet Fraction Pct 3.8 % (0.9-11.2); Lymphocytes Absolute Auto 0.92 K/mm3 (0.9-3.2); Lymphocytes Percent Auto 10.6 % (18.3-44.2); Mean Corpuscular HGB Conc 33.2 g/dl (32-36); Mean Corpuscular Hemoglobin 31.4 pg (26-34); Mean Corpuscular Volume 94.4 fl (80-100); Monocytes Absolute Auto 0.5 K/mm3 (0.1-0.6); Monocytes Percent Auto 5.3 % (2.6-8.5); Neutrophils Absolute Auto 7.2 K/mm3 (1.3-6.7); Neutrophils Percent Auto 83.2 % (45.5-73.1); Platelet Count Result 157 k/mm3 (150-375); Red Blood Count 3.73 M/mm3 (4.2-5.4); Red Cell Distribution Width 11.9 % (11.5-14.5); White Blood Count 8.6 K/mm3 (4.5-10.0)
--- NOTE | 2022-02-16 09:50 | PM.IMPN ---
Progress Note: A&P Assessment and Plan (1) Perforation of sigmoid colon due to diverticulitis: Code(s): K57.20 - Diverticulitis of large intestine with perforation and abscess without bleeding Status: Acute Assessment and Plan: This will be her 4th bout of diverticulitis and the 3rd since this summer alone. She has been mindful of her diet at home and is frustrated by the recurrent episodes. She has been started on Zosyn q.6 hours per antibiotic stewardship recommendations. She will be NPO tonight and analgesics are available as needed. Surgery has been consulted and we will monitor serial exams given findings of micro perforation on imaging at the outside facility. Will start clear liquid diet Repeat labs Gentle IV Continue IV Zosyn ordered lactic acid was normal in outside hospital (2) Anxiety: Code(s): F41.9 - Anxiety disorder, unspecified Status: Acute Plan recurrent diverticulitis: Colonoscopy in 2019 with diverticulosis and external hemorrhoids. Option for colon resection electively if patient desires Subjective Date/time seen: 02/16/22 09:50 Interval history: HPI:This is a a very pleasant 41-year-old female with history of diverticulitis who is being directly admitted to the medical floor for treatment of diverticulitis with microperforation found on CT scan at an outside facility. Two days ago on Friday evening she developed abdominal distension and bloating. By the following morning she was experiencing diffuse abdominal discomfort as though she had significant gas that she was unable to pass. She passed a small yet normal bowel movement yesterday and but that did not seem to help. These symptoms are similar to when she had diverticulitis in the past and she spoke with her doctor on the phone today and she was instructed to the ER.? CT of the abdomen and pelvis done at [facility] showed sigmoid diverticulitis with microperforation (no abscess) and she is being directly admitted for IV antibiotics and surgery consultation. This will be her 4th bout of diverticulitis, the 1st being about 3 years ago. She had 2 episodes of diverticulitis just this summer. She denies fever, chills, and sweats. She has not noticed any blood or mucus in the stools. No significant nausea or vomiting. 02/16/2022: abdomen is less sore. No nausea vomiting. Complains of headache and feeling hungry Review of Systems Review of Systems: All systems reviewed & are unremarkable except as noted in HPI and below Exam Narrative: General: Well-developed female supine in bed in no distress. HEENT: PERRL, EOMI. Sclera anicteric. Tacky mucous membranes. Neck: Supple. Respiratory: Lungs are clear to auscultation bilaterally. Cardiovascular: Regular rate and rhythm with S1-S2. Gastrointestinal: Abdomen is soft and slightly distended with positive bowel sounds. She is mildly tender to palpation in the left lower quadrant. No guarding or rebound tenderness. Skin: Warm and dry. Extremities: No cyanosis, clubbing, or edema. Radial and pedal pulses intact. Neurological: Alert. Cranial nerves 2-12 are grossly intact. No gross focal deficits to casual conversation. Psychiatric: Pleasant and cooperative with normal mood and affect. Judgment and insight intact. Objective Data Vital Signs Vital Signs: Vital Signs - 24 hr 02/15/22 16:25 02/15/22 17:34 02/15/22 22:34 Temperature 97.7 F 97.4 F L Pulse Rate 78 66 Respiratory Rate 14 20 Blood Pressure 105/58 L 101/64 Pulse Oximetry 100 97 99 Oxygen Delivery Room Air 02/16/22 06:00 Temperature 97.2 F L Pulse Rate 71 Respiratory Rate 21 H Blood Pressure 113/65 Pulse Oximetry 100 Oxygen Delivery Intake/Output Intake/Output: Intake & Output 02/13/22 02/14/22 02/15/22 02/16/22 23:59 23:59 23:59 23:59 Intake Total 710 100 Balance 710 100 Meds/Results Medications: Active Medications Generic Name Dose Route Start L
[2022-02-16 10:04] LABS: Alanine Aminotransferase 59 U/L (6-35); Albumin Level 4.1 g/dL (3.5-5.1); Alkaline Phosphatase 72 U/L (38-126); Anion Gap 10 mmol/L (8-16); Aspartate Amino Transferase 56 U/L (14-36); Bilirubin,Total 0.8 mg/dL (0.2-1.3); Blood Urea Nitrogen 12 mg/dL (7-17); CRP 4.1 mg/dL (<1.0); Calcium 8.3 mg/dL (8.4-10.2); Carbon Dioxide 26 mmol/L (22-30); Chloride 102 mmol/L (98-107); Estimated CRCL calculation 71 ml/min; Estimated Glomerular Filt Rate > 60; Glucose 116 mg/dL (65-110); Potassium 3.5 mmol/L (3.4-5.0); Sodium 138 mmol/L (137-145)
[2022-02-16] MEDS: DEXTROSE 5%/0.9% SOD CHL 1,000 ML 80 ML IV CONT ×2 (10:19→23:24)
--- NOTE | 2022-02-16 11:40 | PM.CNGS ---
Assessment and Plan Assessment and plan (1) Perforation of sigmoid colon due to diverticulitis: Code(s): K57.20 - Diverticulitis of large intestine with perforation and abscess without bleeding Status: Acute Assessment and Plan: Continue clear liquids. Advance diet slowly. Continue IV Zosyn History of Present Illness Consult details Consult date: 02/16/22 Narrative: Pain improving. No fevers. Tolerating clear liquids. [facility] Past Medical History Medical History (Updated 02/15/22 @ 18:13 by Emiliana Pavon PA-C) Anxiety Diverticulitis Diverticulosis Surgical History Surgical History (Updated 02/15/22 @ 18:07 by Emiliana Pavon PA-C) History of cholecystectomy Family History Family History Grandparent Cerebrovascular accident Family history of lung cancer Father No problems noted. Mother Hypertension Sibling No problems noted. Other Family history of arthritis Social History Social History (Updated 02/15/22 @ 18:07 by Emiliana Pavon PA-C) Social History: Surrogate medical decision maker: Terrell Molina, spouse. Code status: Full code. Smoking status: Never smoker Second hand tobacco smoke exposure: No Alcohol intake: current Drinks per week: 6 Substance use: never Substance use type: does not use Additional living arrangements comments: Lives in [place] with her and 2 children. 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: No Meds Home Medications and Allergies Home Medications Medication Instructions Recorded Confirmed Type oxycodone-acetaminophen 5 mg-325 1 tablet PO Q6H PRN pain #20 tabs 11/12/21 02/15/22 Rx mg tablet (Percocet) bupropion HCl 150 mg tablet,12 hr 150 mg PO DAILY 11/23/21 02/15/22 History sustained-release (Wellbutrin SR) Allergies Allergy/AdvReac Type Severity Reaction Status Date / Time metoclopramide Allergy Mild DEPRESSION, Verified 02/15/22 16:32 IRRITABLE Vital Signs Vital Signs - 24 hr 02/15/22 16:25 02/15/22 17:34 02/15/22 22:34 Temperature 36.5 C 36.3 C L Pulse Rate 78 66 Respiratory Rate 14 20 Blood Pressure 105/58 L 101/64 Pulse Oximetry 100 97 99 Oxygen Delivery Room Air 02/16/22 06:00 02/16/22 08:25 Temperature 36.2 C L Pulse Rate 71 Respiratory Rate 21 H Blood Pressure 113/65 Pulse Oximetry 100 Oxygen Delivery Room Air Exam GI: Inspection: non-distended GI Palp: Yes Soft to palpation, Yes Tenderness to palpation present (GI) (LLQ) and No Guarding due to palpation present (GI) Auscultation: normal bowel sounds Results Labs Result diagrams: 02/16/22 09:32 02/16/22 09:32 Labs: Abnormal lab results 02/16/22 02/16/22 Range/Units 09:32 09:32 RBC 3.73 L (4.2-5.4) M/mm3 Hgb 11.7 L (12.0-15.0) g/dL Hct 35.2 L (37.0-47.0) % Neut % (Auto) 83.2 H (45.5-73.1) % Lymph % (Auto) 10.6 L (18.3-44.2) % Abs Immat Gran (auto) 0.04 H (0.00-0.031) K/mm3 Absolute Neuts (auto) 7.2 H (1.3-6.7) K/mm3 Glucose 116 H (65-110) mg/dL Calcium 8.3 L (8.4-10.2) mg/dL AST 56 H (14-36) U/L ALT 59 H (6-35) U/L C-Reactive Protein 4.1 H (<1.0) mg/dL Diabetes panel 02/16/22 Range/Units 09:32 Sodium 138 (137-145) mmol/L Potassium 3.5 (3.4-5.0) mmol/L Chloride 102 (98-107) mmol/L Carbon Dioxide 26 (22-30) mmol/L BUN 12 (7-17) mg/dL Creatinine 0.90 (0.7-1.0) mg/dL Glucose 116 H (65-110) mg/dL Calcium 8.3 L (8.4-10.2) mg/dL AST 56 H (14-36) U/L ALT 59 H (6-35) U/L Alkaline Phosphatase 72 (38-126) U/L Total Protein 7.0 (6.3-8.2) g/dL Albumin 4.1 (3.5-5.1) g/dL Calcium panel 02/16/22 Range/Units 09:32 Calcium 8.3 L (8.4-10.2) mg/dL Albumin 4.1 (3.5-5.1) g/dL Pituitary panel 02/16/22 Range/Units
[2022-02-16 15:44] VITALS: BP 103/59; PULSE 73; RESP 18; TEMP 36.8; O2SAT 100
[2022-02-16] MEDS: ACETAMINOPHEN 325 MG TABLET 650 MG PO (16:35)
[2022-02-16 20:37] LABS: Glucose Point of Care 141 mg/dl (65-105)
[2022-02-16 20:43] VITALS: BP 104/60; PULSE 71; RESP 20; TEMP 36.6; O2SAT 99
[2022-02-16] MEDS: MELATONIN 5 MG TABLET 10 MG PO (21:00)
[2022-02-17 04:59] VITALS: BP 102/50; PULSE 63; RESP 20; TEMP 36.7; O2SAT 100
[2022-02-17 06:08] LABS: Hematocrit 34.2 % (37.0-47.0); Hemoglobin 11.5 g/dL (12.0-15.0); Mean Corpuscular HGB Conc 33.6 g/dl (32-36); Mean Corpuscular Hemoglobin 31.6 pg (26-34); Mean Platelet Volume 10.5 fl (7.4-10.4); Platelet Count Result 148 k/mm3 (150-375); Red Blood Count 3.64 M/mm3 (4.2-5.4); Red Cell Distribution Width 11.9 % (11.5-14.5); White Blood Count 5.2 K/mm3 (4.5-10.0)
[2022-02-17 06:24] LABS: Anion Gap 10 mmol/L (8-16); Blood Urea Nitrogen 8 mg/dL (7-17); CRP 2.3 mg/dL (<1.0); Calcium 8.3 mg/dL (8.4-10.2); Carbon Dioxide 23 mmol/L (22-30); Chloride 107 mmol/L (98-107); Estimated CRCL calculation 77 ml/min; Estimated Glomerular Filt Rate > 60; Glucose 105 mg/dL (65-110); Potassium 3.5 mmol/L (3.4-5.0); Sodium 140 mmol/L (137-145)
[2022-02-17] MEDS: buPROPion HCL XL (24 HR) 150 MG TABCR PO (07:51)
[2022-02-17] MEDS: HYDROcodone/acetaminophen (*CRX) 5-325 MG TABLET 1 TAB PO (09:08)
--- NOTE | 2022-02-17 11:29 | PM.PNGS ---
Progress Note: A&P Assessment and Plan (1) Perforation of sigmoid colon due to diverticulitis: Code(s): K57.20 - Diverticulitis of large intestine with perforation and abscess without bleeding Status: Acute Assessment and Plan: Advanced diet to full liquids this morning. Okay to advance to low-fiber diet this afternoon and discharge if doing well. Continue course of oral antibiotics at home. Will have patient follow up in office in 2 weeks. Subjective Subjective Date/Time Seen: 02/17/22 11:29 Interval history: Pain nearly resolved. No fevers. Tolerating clear liquid diet. Exam GI: Inspection: non-distended GI Palp: Yes Soft to palpation, No Tenderness to palpation present (GI) and No Guarding due to palpation present (GI) Auscultation: normal bowel sounds Objective Data Vital Signs Vital Signs: Vital Signs - 24 hr 02/16/22 15:44 02/16/22 20:43 02/17/22 04:59 Temperature 36.8 C 36.6 C 36.7 C Pulse Rate 73 71 63 Respiratory Rate 18 20 20 Blood Pressure 103/59 L 104/60 102/50 L Pulse Oximetry 100 99 100 Intake/Output Intake/Output: Intake & Output 02/14/22 02/15/22 02/16/22 02/17/22 23:59 23:59 23:59 23:59 Intake Total 710 2480 1020 Output Total 2100 Balance 465 103 9053 Meds/Results Medications: Active Medications Generic Name Dose Route Start Last Admin Trade Name Freq PRN Reason Stop Dose Admin Acetaminophen 650 mg 02/15/22 16:48 02/16/22 16:35 Acetaminophen 325 Mg Tablet PO 650 mg Q4H PRN Administration Mild Pain (1-3) or Fever Hydrocodone Bitart/Acetaminophen 1 tab 02/15/22 16:48 02/17/22 09:08 Hydrocodone/Acetaminophen (*Crx) 5-325 Mg Tablet PO 1 tab Q4H PRN Administration Moderate Pain (4-6) Bupropion HCl 150 mg 02/16/22 09:00 02/17/22 07:51 Bupropion Hcl Xl (24 Hr) 150 Mg Tabcr PO 150 mg QAM EMORY Administration Piperacillin/Tazobactam/Dextrose 3.375 gm in 50 mls @ 100 mls/hr 02/16/22 00:00 02/17/22 06:27 Zosyn 3.375 Gm/D5w 50ml Pm IVPB Infused Q6H EMORY Infusion Dextrose/Sodium Chloride 1,000 mls @ 80 mls/hr 02/16/22 10:15 02/16/22 23:24 Dextrose 5% Sodium Chloride 0.9% IV CONT 80 mls/hr .[id number] EMORY Administration Melatonin 10 mg 02/16/22 21:00 02/16/22 21:00 Melatonin 5 Mg Tablet PO 10 mg HS EMORY Administration Morphine Sulfate 2 mg 02/15/22 16:48 Morphine Sulfate (*Crx) 2 Mg/Ml Inj IV PUSH Q4H PRN Pain Rated 7-10 Ondansetron HCl 4 mg 02/15/22 16:48 Ondansetron Inj 4 Mg/2 Ml Vial IV PUSH Q6H PRN Nausea And Vomiting Labs Labs: Laboratory Results - last 24 hr 02/16/22 02/17/22 02/17/22 20:25 05:41 05:41 WBC 5.2 RBC 3.64 L Hgb 11.5 L Hct 34.2 L MCV 94.0 MCH 31.6 MCHC 33.6 RDW 11.9 Plt Count 148 L MPV 10.5 H Sodium 140 Potassium 3.5 Chloride 107 Carbon Dioxide 23 Anion Gap 10 BUN 8 Creatinine 0.90 Estim Creat Clear Calc 77 Estimated GFR > 60 Glucose 105 POC Capillary Glucose 141 H Calcium 8.3 L C-Reactive Protein 2.3 H
[2022-02-17] MEDS: DEXTROSE 5%/0.9% SOD CHL 1,000 ML 80 ML IV CONT (11:42)
--- NOTE | 2022-02-17 11:53 | PM.DS ---
DS: Admitting Diagnosis Discharge Date 02/17/2022 Admitting Diagnosis Abdominal pain DS: Discharge Diagnosis Discharge Diagnosis (1) Perforation of sigmoid colon due to diverticulitis: Code(s): K57.20 - Diverticulitis of large intestine with perforation and abscess without bleeding Status: Acute (2) Anxiety: Code(s): F41.9 - Anxiety disorder, unspecified Status: Acute DS: Summary Hospital Course Reason for hospitalization: This is a a very pleasant 41-year-old female with history of diverticulitis who is being directly admitted to the medical floor for treatment of diverticulitis with microperforation found on CT scan at an outside facility. Two days ago on Friday evening she developed abdominal distension and bloating. By the following morning she was experiencing diffuse abdominal discomfort as though she had significant gas that she was unable to pass. She passed a small yet normal bowel movement yesterday and but that did not seem to help. These symptoms are similar to when she had diverticulitis in the past and she spoke with her doctor on the phone today and she was instructed to the ER.? CT of the abdomen and pelvis done at [facility] showed sigmoid diverticulitis with microperforation (no abscess) and she is being directly admitted for IV antibiotics and surgery consultation. This will be her 4th bout of diverticulitis, the 1st being about 3 years ago. She had 2 episodes of diverticulitis just this summer. She denies fever, chills, and sweats. She has not noticed any blood or mucus in the stools. No significant nausea or vomiting. Hospital Course: # acute sigmoid diverticulitis with micro perforation: This will be her 4th bout of diverticulitis and the 3rd since this summer alone. She has been mindful of her diet at home and is frustrated by the recurrent episodes. CT was done in outside hospital which is transfer from. She has been started on Zosyn q.6 hours per antibiotic stewardship recommendations. She was initially kept NPO and analgesics as needed. General has been consulted and she will examination performed. Lactic acid was normal. With improvement pain she was started on clear liquid diet and advance as tolerated. She tolerated her diet advised to stay on low residue soft diet at discharge for few weeks before advancing it further. She had recurrent bout of diverticulitis. She had a colonoscopy in 2019 with diverticulosis and external hemorrhoids. She was given option for colon resection electively if patient desired by the General surgery. She will follow-up with General surgery as an outpatient basis for continued workup and evaluation. Time Spent with Patient Time attestation: Total time spent providing and/or coordinating discharge services: 40 minutes Exam Narrative: General: Well-developed female supine in bed in no distress. HEENT: PERRL, EOMI. Sclera anicteric. Tacky mucous membranes. Neck: Supple. Respiratory: Lungs are clear to auscultation bilaterally. Cardiovascular: Regular rate and rhythm with S1-S2. Gastrointestinal: Abdomen is soft and slightly distended with positive bowel sounds. She is mildly tender to palpation in the left lower quadrant. No guarding or rebound tenderness. Skin: Warm and dry. Extremities: No cyanosis, clubbing, or edema. Radial and pedal pulses intact. Neurological: Alert. Cranial nerves 2-12 are grossly intact. No gross focal deficits to casual conversation. Psychiatric: Pleasant and cooperative with normal mood and affect. Judgment and insight intact. DS: Data Data Completed and Pending Labs on day of discharge: Labs from last 24 hours 02/17/22 02/17/22 02/16/22 05:41 05:41 20:25 WBC 5.2 RBC 3.64 L Hgb 11.5 L Hct 34.2 L MCV 94.0 MCH 31.6 MCHC 33.6 RDW 11.9 Plt Count 148 L MPV 10.5 H Sodium 140 Potassium 3.5 Chloride 107 Carbon Dioxide 23 Anion Gap 10 BUN 8
[2022-02-17 15:08] VITALS: BP 105/56; PULSE 74; RESP 16; TEMP 36.4; O2SAT 100
== END 2022-02-17 18:07 | disposition home or self-care (01) ==
PROVIDERS: Physician Assistant; Surgery; Admitting Provider Chiropractor; PCP Family Medicine; Referring Provider Internal Medicine Gastroenterology; Visit Provider Internal Medicine
DX: K57.20 Diverticulitis of large intestine with perforation and abscess without bleeding (principal); F41.9 Anxiety disorder, unspecified; F10.90 Alcohol use, unspecified, uncomplicated; Z79.891 Long term (current) use of opiate analgesic; Z79.899 Other long term (current) drug therapy
CPT/HCPCS: 36415; 80048; 80053; 82948; 83735; 85025; 85027; 85055; 86140; 96361; 96365; 96366; 96375; 96376; A9270; G0378; G0379; J2543; J7030; J7042

== ENCOUNTER 2022-04-08 08:03 | Outpatient (CLI) | payer OTHER, SELFPAY | END 2022-04-08 08:04 | disposition home or self-care (01) | LOC: ANHSURGERY 08:05 | PROVIDERS: PCP Family Medicine; Visit Provider Surgery | DX: K57.20 Diverticulitis of large intestine with perforation and abscess without bleeding (principal); Z01.818 Encounter for other preprocedural examination | CPT/HCPCS: 36415; 86850; 86900; 86901 ==

== ENCOUNTER 2022-04-16 19:05 | Inpatient (IN) | payer OTHER, SELFPAY ==
--- NOTE | 2022-04-08 08:30 | PC.NURSE ---
Addendum entered by Jazzy Barillas RN 04/08/22 08:54: PROBIOTIC HOLD 3 DAYS PRE OP. LAST DOSE WILL BE 04/12/22 Addendum entered by Jazzy Barillas RN 04/08/22 08:37: PROBITIC 3 DAYS PRE OP Original Note: Report to the Outpatient Waiting Room, entrance under the green pavilion located off [facility], at [id number] on date __04/16/22 . Planned Procedure Time: __1200 . Time changes happen often and if your time is changed the preop area will call you the afternoon before. - You and your visitor will be asked to self-screen and do not enter if you have any COVID symptoms. - Only one visitor is requested with a max of two and NO children visitors are allowed at this time. - The patient visitor may be requested to leave or wait in car when not with patient due to distancing restrictions. - A mask is optional within the hospital. Patients may have clear liquids (water, carbonated beverages, clear teas, apple juice) until 3 hours prior to surgery with a maximum of 20 ounces. - No food from midnight until time of surgery - Infants may have breast milk until 4 hours before surgery, formula 6 hours prior to surgery. - Children will be allowed to drink immediately following surgery. If applicable, please bring a bottle or sippy cup to assist with drinking. Juice, water, soda, and popsicles are readily available. For infants on formula, please bring formula the day of surgery. Pacifiers are allowed. Take the following medications with a SIP of water the morning of surgery: __BUPROPION,ALPRAZOLAM Medications to discontinue per physician ____MULTIVITAMIN 3 DAYS PRE OP Date to take last dose___04/12/22 Please no make-up, nail surinamese, hairspray, perfume, deodorant, or body powder the day of surgery. No jewelry (including any body piercings) or valuables the day of surgery, leave them at home. Please take a shower or bath the night before, or the morning of, surgery with an antibacterial soap. Wear comfortable, loose fitting clothing. Children are encouraged to wear pajamas. - Jewelry must be removed prior to entering the operating room. Rings and piercings that are not removed may be cut off. - The hospital will not accept responsibility for valuables. - Please leave all valuables, including medications, at home the day of surgery. HIBICLENS SHOWER DAY BEFORE SURGERY AND MORNING OF SURGERY BOWEL PREP AND ENSURE BUNDLE PER DR RAMIREZ If you are going home after surgery, a licensed warehouse driver must drive you home. - NO public transportation without another adult if you receive anesthesia. - We recommend that an adult stay with you for 24 hours following discharge. - We also recommend that you do not drive, make important decision, drink alcoholic beverages, or take any drugs that were not prescribed by your health care provider for at least 24 hours after your discharge time. For Pediatric surgeries, we recommend two adults accompany the child home. Follow any additional instructions given to you from your surgeon. If you or anyone in your household have experienced Covid symptoms in the past week, please notify your surgeon or the nurse liaison at the phone number below for possible testing. VERBAL AND WRITTEN instructions given to ____PATIENT and asked if any additional questions and then verbalized understanding. Patient advised to call surgeon office or pre surgery nurse liaison [phone] if any additional questions.
[2022-04-08 08:43] VITALS: BP 102/61; PULSE 72; RESP 18; TEMP 36.8; O2SAT 100; BMI 30.4
[2022-04-16] VITALS (15 sets, daily range): BP systolic 98–122; BP diastolic 55–86; PULSE 78–95; RESP 10–19; TEMP 36.4–36.9; O2SAT 95–100
[2022-04-16] MEDS: ACETAMINOPHEN 500 MG TABLET 1000 MG PO ×2 (10:51→20:15)
[2022-04-16] MEDS: LACTATED RINGERS 1,000 ML 30 ML IV CONT ×2 (11:02→17:00)
[2022-04-16] MEDS: KETOROLAC 15 MG/ML VIAL (*BKC) IV PUSH (11:04)
--- NOTE | 2022-04-16 12:05 | PM.IMHP ---
H&P: HPI History of Present Illness Date/Time: 04/16/22 12:05 Chief Complaint: Sigmoid diverticulitis Narrative: This is a 41-year-old woman who presents for sigmoid colectomy for recurrent diverticulitis. She has had multiple prior episodes of diverticulitis and has been hospitalized twice in the past year. She recovered both times with IV antibiotics and bowel rest, she is concerned about recurrent episodes and future problems. Review of Systems Review of Systems: All systems reviewed & are unremarkable except as noted in HPI and below Constitutional: Constitutional: Denies chills, Denies fever(s), Denies headache(s) and Denies weight loss Eyes: Eyes: Denies change in vision ENT: Denies dizziness, Denies headache(s), Denies neck mass and Denies throat swelling Cardiovascular: Cardiovascular: Denies chest pain, Denies lightheadedness and Denies dyspnea Respiratory: Respiratory: Denies cough, Denies dyspnea and Denies wheezing Gastrointestinal: Gastrointestinal: Denies abdominal pain, Denies change in bowel habits, Denies nausea and Denies vomiting Genitourinary: Genitourinary: Denies hematuria and Denies dysuria Musculoskeletal: Musculoskeletal: Reports as per HPI Integumentary/Breasts: Skin/Breast: Reports as per HPI Neurologic: Denies dizziness and Denies headache(s) Allergic/Immunologic: Allergic/Immunologic: Denies throat swelling and Denies wheezing PMFSH Past Medical History Medical History Anxiety Diverticulitis Diverticulosis Surgical History Surgical History History of cholecystectomy Family History Family History Grandparent Cerebrovascular accident Family history of lung cancer Father No problems noted. Mother Hypertension Sibling No problems noted. Other Family history of arthritis Social History Social History Social History: Surrogate medical decision maker: Terrell Molina, spouse. Code status: Full code. Smoking status: Never smoker Second hand tobacco smoke exposure: No Alcohol intake: current Drinks per week: 6 Substance use: never Substance use type: does not use Living arrangements: with family Additional living arrangements comments: Lives in [place] with her and 2 children. 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: No Meds Home Medications and Allergies Home Medications Medication Instructions Recorded Confirmed Type bupropion HCl 150 mg tablet,12 hr 150 mg PO DAILY 11/23/21 04/16/22 History sustained-release (Wellbutrin SR) Lactobacillus 1 cap PO DAILY 04/08/22 04/16/22 History acidophilus-Bifidobac.animalis 2.5 billion cell capsule (Daily Probiotic) alprazolam 0.5 mg tablet 0.25 mg PO PRN PRN Anxiety 04/08/22 04/16/22 History ibuprofen 600 mg tablet 600 mg PO Q6H PRN Pain 04/08/22 04/16/22 History multivitamin 1 tablet PO DAILY 04/08/22 04/16/22 History tizanidine 4 mg tablet 4 mg PO PRN PRN Muscle Spasm 04/08/22 04/16/22 History psyllium husk 0.52 gram capsule 0.52 g PO HS 04/16/22 04/16/22 History Allergies Allergy/AdvReac Type Severity Reaction Status Date / Time metoclopramide Allergy Mild DEPRESSION, Verified 04/16/22 10:46 IRRITABLE Vital Signs Vital Signs - 24 hr 04/16/22 10:35 Temperature 36.6 C Pulse Rate 86 Respiratory Rate 16 Blood Pressure 108/86 Pulse Oximetry 100 Oxygen Delivery Room Air Exam Const: General: no acute distress and alert Orientation/consciousness: patient oriented x3 HENMT: Head: normocephalic and atraumatic Ears: hearing grossly normal bilaterally Face/Nose/Sinus: Normal nares present Mouth: Yes Normal oral and palatal mucosa present Eyes: Periorbital: per
--- NOTE | 2022-04-16 12:07 | WPDHPUPDATE1 ---
History and Physical Update Update Date/Time: 04/16/22 12:07 History and Physical has been reviewed, including an updated exam of the patient. There are NO changes in the patient's condition. Risks, benefits, and alternatives have been discussed and questions answered. Patient agrees to proceed with procedure.
--- NOTE | 2022-04-16 12:08 | SUR.PREOP ---
discussed delay with patient and family.
--- NOTE | 2022-04-16 12:54 | WPDANESEPPF ---
Anes - Initial Pre Proc Eval Procedure: Operation Date: 04/16/22 12:00 Proposed Procedures p Robotic Assisted Laparoscopic Sigmoid Colectomy, Possible Open - Deonte Meza DO Date/Time: 04/16/22 12:54 Surgeon: Deonte Meza DO Pre Op Diagnosis: diverticulitis with perforation Patient Data Age: 41 Gender: F Height: 1.47 m Weight: 63.5 kg Last Vital Signs Temp 98 F 04/16/22 10:35 Pulse 86 04/16/22 10:35 Resp 16 04/16/22 10:35 BP 108/86 04/16/22 10:35 Pulse Ox 100 04/16/22 10:35 O2 Del Method Room Air 04/16/22 10:35 Allergies Allergy/AdvReac Type Severity Reaction Status Date / Time metoclopramide Allergy Mild DEPRESSION, Verified 04/16/22 10:46 IRRITABLE Home Medications Medication Instructions Recorded Confirmed Type bupropion HCl 150 mg tablet,12 hr 150 mg PO DAILY 11/23/21 04/16/22 History sustained-release (Wellbutrin SR) Lactobacillus 1 cap PO DAILY 04/08/22 04/16/22 History acidophilus-Bifidobac.animalis 2.5 billion cell capsule (Daily Probiotic) alprazolam 0.5 mg tablet 0.25 mg PO PRN PRN Anxiety 04/08/22 04/16/22 History ibuprofen 600 mg tablet 600 mg PO Q6H PRN Pain 04/08/22 04/16/22 History multivitamin 1 tablet PO DAILY 04/08/22 04/16/22 History tizanidine 4 mg tablet 4 mg PO PRN PRN Muscle Spasm 04/08/22 04/16/22 History psyllium husk 0.52 gram capsule 0.52 g PO HS 04/16/22 04/16/22 History Patient hx anesthesia problems: none Family hx anesthesia problems: none Results Review: All pre-operative results and documents have been reviewed as part of the pre-operative evaluation. [facility] Past Medical History Medical History Anxiety Diverticulitis Diverticulosis Surgical History Surgical History History of cholecystectomy Family History Family History Grandparent Cerebrovascular accident Family history of lung cancer Father No problems noted. Mother Hypertension Sibling No problems noted. Other Family history of arthritis Social History Social History Social History: Surrogate medical decision maker: Terrell Molina, spouse. Code status: Full code. Smoking status: Never smoker Second hand tobacco smoke exposure: No Alcohol intake: current Drinks per week: 6 Substance use: never Substance use type: does not use Living arrangements: with family Additional living arrangements comments: Lives in [place] with her and 2 children. 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: No Anes - Eval Final PreProcedure Day of Procedure 04/16/22 12:54 Patient weight: overweight Heart: regular rate and rhythm Lungs: clear to auscultation Airway: Mallampati scale class II Neurological: alert and oriented Last oral intake: >/= 8 hours ASA classification: II Emergent: no Anesthetic plan: proceed Anesthesia type and monitoring: general ETT Results Review: All pre-operative results and documents have been reviewed as part of the pre-operative evaluation. Informed Consent: The patient's anesthetic plan and its attendant risks and benefits were discussed with the patient/family/POA. Questions were solicited and answers provided to the satisfaction of the patient/family/POA.
[2022-04-16] MEDS: ceFAZolin 2 GM/D5W 50 ML 2 GM/50 ML BAG IVPB (13:01)
[2022-04-16] MEDS: metroNIDAZOLE 500 MG/ISO 100ML 500 MG/100 ML BAG 100 MG IVPB (13:22)
--- NOTE | 2022-04-16 15:41 | SUR.OPER ---
INTRA OP Indocyanine Green 25 mg/vial reconstituted with 10 ml of sterile water, 3 ml given by Larissa Sandoval CRNA @ [address] Meza verbal order with readback. Followed by 10 ml flush. Unable to document in MAR due to system error
--- NOTE | 2022-04-16 17:00 | W.PM.PROC2 ---
Procedure Note - Detailed Date of Procedure 04/16/22 Pre-op Diagnosis diverticulitis with perforation Post-op Diagnosis Same Procedure Performed Laparoscopic sigmoid colectomy with colorectal anastomosis, da Cristóbal assisted Surgeon Deonte Meza DO Anesthesia General and Local (Exparel) Indications This is a 41-year-old woman who presented with recurrent episodes of sigmoid diverticulitis. Her last episode was 2 months ago and she had evidence of microperforation without abscess. She recovered with IV antibiotics and a short hospital stay. She has had a colonoscopy within the last 2 years. She followed in the office and further treatment with long-term prevention and dietary modifications or surgical options were discussed. Patient wanted to proceed with sigmoid colectomy. Decision was made to proceed with robotic assisted laparoscopic sigmoid colectomy, possible open. Findings Robotic assisted laparoscopic sigmoid colectomy was performed. The sigmoid colon had evidence previous diverticulitis, but there was no evidence abscess or stricture. The descending colon appeared free of diverticula and the rectum appeared healthy. The sigmoid colon was resected. ICG infusion was performed to confirm adequate perfusion to the proximal colon at the resection site and the rectum. A 28 mm EEA stapler was used for the anastomosis. After performing the anastomosis, leak check was performed by filling the pelvis with saline and insufflating air into the rectum. No air bubbles were visualized leaking from the anastomosis. The anastomotic rings appeared complete and the anastomosis appeared healthy and viable. Description of Procedure Procedure as well as risks, benefits, and alternatives were discussed with the patient. Written consent was obtained and placed in chart prior to procedure. Patient was brought back to surgical suite. She was placed supine on operating table. Time-out was done to confirm patient and procedure. She was then intubated by the anesthesia department. She was then repositioned into a modified lithotomy position. Her rectal area was prepped and draped in sterile fashion using Betadine prep and her abdomen was prepped and draped in sterile fashion using chlorhexidine prep. A 8 mm incision was made in the right upper quadrant and a 5 mm Optiview trocar was advanced through the abdominal layers under direct visualization. Once inside the abdominal cavity, carbon dioxide insufflation was used to create a pneumoperitoneum. Camera was inserted and her abdomen was inspected laparoscopically. No immediate abnormalities were identified. The patient was placed in steep Trendelenburg position. A 12 mm incision was made in the right lower quadrant about 2 cm medial to the ASIS, and a 12 mm trocar was inserted under direct visualization. Three more 8 mm incisions were placed and 8 mm ports were placed under direct visualization on an oblique angle going up towards the left upper quadrant. Exparel was infiltrated laterally the abdominal goins on each side to perform a transversus abdominis block bilaterally. A careful thorough examination of the abdominal cavity was performed. The omentum was reflected cephalad over the stomach. The cecum and small bowel were reflected out of the pelvis. The robotic arms were then brought up to the patient's bedside in secured to the ports. The robotic camera and instruments were then inserted and then I moved over to the robotic console and took control of the camera and instruments. After carefully inspecting the abdominal cavity, I then lifted the rectosigmoid junction anteriorly to tent up the inferior mesenteric artery pedicle. A medial to lateral dissection was performed using scissors with electrocautery. I scored the peritoneum along the undersurface of the superior hemorrhoidal vessel at the sacral promontory and entered into the avascular space. I carefully dissected within the space to dissect the h
--- NOTE | 2022-04-16 18:10 | SUR.PHASEI ---
REPORT GIVEN TO RN. AWAITING ROOM TO BE CLEANED.
[2022-04-16] MEDS: fentaNYL CITRATE INJ (*CRX) 100 MCG/2 ML VIAL 25 MCG IV PUSH ×2 (18:14→18:28)
--- NOTE | 2022-04-16 19:41 | ADMGEN ---
This patient, Era Molina, was admitted to Medical Room 341-01. Patient/family oriented to hospital policies and general routines including ID bracelet, bed and alarms, visiting hours, pain management, procedures, bathroom and other care routines, personal items, smoking policy, room service/diet, and visiting hours. Information on how to activate the Rapid Response Team has been discussed. Patient/Family are encouraged to report perceived risks to care and to ask questions if they do not understand what they are told or what they should do.
[2022-04-16] MEDS: LACTATED RINGERS 1,000 ML 100 ML IV CONT (20:14)
[2022-04-16] MEDS: MORPHINE SULFATE (*CRX) 2 MG/ML INJ IV PUSH (21:48)
[2022-04-17] MEDS: ALPRAZolam (*CRX) 0.25 MG TABLET PO ×2 (00:22→15:34)
[2022-04-17 00:50] VITALS: BP 118/58; PULSE 74; RESP 14; TEMP 36.9; O2SAT 100
[2022-04-17] MEDS: MORPHINE SULFATE (*CRX) 2 MG/ML INJ IV PUSH ×4 (02:24→19:16)
[2022-04-17] MEDS: ACETAMINOPHEN 500 MG TABLET 1000 MG PO ×4 (02:24→20:33)
[2022-04-17 04:50] VITALS: BP 121/59; PULSE 76; RESP 16; TEMP 36.7; O2SAT 100
[2022-04-17] MEDS: LACTATED RINGERS 1,000 ML 100 ML IV CONT ×2 (05:55→08:21)
[2022-04-17 06:05] LABS: Basophils Percent Auto 0.2 % (0.2-1.2); Hematocrit 37.1 % (37.0-47.0); Hemoglobin 12.2 g/dL (12.0-15.0); Immature Granulocyte Absolute 0.06 K/mm3 (0.00-0.031); Immature Granulocyte Percent A 0.5 % (0-0.5); Lymphocytes Percent Auto 8.1 % (18.3-44.2); Mean Corpuscular HGB Conc 32.9 g/dl (32-36); Mean Corpuscular Hemoglobin 31.2 pg (26-34); Mean Corpuscular Volume 94.9 fl (80-100); Mean Platelet Volume 10.3 fl (7.4-10.4); Monocytes Absolute Auto 0.8 K/mm3 (0.1-0.6); Monocytes Percent Auto 7.5 % (2.6-8.5); Neutrophils Absolute Auto 9.3 K/mm3 (1.3-6.7); Neutrophils Percent Auto 83.7 % (45.5-73.1); Platelet Count Result 183 k/mm3 (150-375); Red Blood Count 3.91 M/mm3 (4.2-5.4); Red Cell Distribution Width 12.4 % (11.5-14.5); White Blood Count 11.1 K/mm3 (4.5-10.0)
[2022-04-17 06:30] LABS: Anion Gap 7 mmol/L (8-16); Blood Urea Nitrogen 10 mg/dL (7-17); Calcium 8.2 mg/dL (8.4-10.2); Carbon Dioxide 25 mmol/L (22-30); Chloride 105 mmol/L (98-107); Estimated Glomerular Filt Rate > 60; Glucose 116 mg/dL (65-110); Sodium 137 mmol/L (137-145)
[2022-04-17] MEDS: buPROPion HCL SR (12 HR) 150 MG TAB PO (08:21)
[2022-04-17] MEDS: ENOXAPARIN 40 MG/0.4 ML SYRINGE SUB-Q (08:22)
[2022-04-17 08:50] VITALS: BP 107/61; PULSE 69; RESP 20; TEMP 36.4; O2SAT 100
--- NOTE | 2022-04-17 12:00 | P.PNAN_ITS ---
Anes - Prog Note Post-Op Date/Time: 04/17/22 12:00 Cardiovascular status: normal Respiratory status: normal Airway patency: baseline Mental status: baseline Post-Op hydration status: normal Vital Signs: Last Vital Signs Temp 36.4 C L 04/17/22 08:50 Pulse 69 04/17/22 08:50 Resp 20 04/17/22 08:50 BP 107/61 04/17/22 08:50 Pulse Ox 100 04/17/22 08:50 O2 Del Method Room Air 04/16/22 19:00 O2 Flow Rate 8 04/16/22 17:15 Pain Score (VAS): 07/19, patient recently recieved pain medication I/O: Intake & Output 04/16/22 04/17/22 04/17/22 23:59 07:59 15:59 Intake Total 1050 1050 1240 Balance 1050 1050 1240 Laboratory Tests 04/17/22 05:19 04/17/22 05:19 04/17/22 04/17/22 05:19 05:19 WBC 11.1 H RBC 3.91 L Hgb 12.2 Hct 37.1 MCV 94.9 MCH 31.2 MCHC 32.9 RDW 12.4 Plt Count 183 MPV 10.3 Immature Gran % (Auto) 0.5 Neut % (Auto) 83.7 H Lymph % (Auto) 8.1 L Callahan % (Auto) 7.5 Eos % (Auto) 0.0 Baso % (Auto) 0.2 Lymph # (Auto) 0.90 Callahan # (Auto) 0.8 H Eos # (Auto) 0.0 Baso # (Auto) 0.0 Abs Immat Gran (auto) 0.06 H Absolute Neuts (auto) 9.3 H Absolute Nucleated RBC 0.0 Nucleated RBC % 0.0 Sodium 137 Potassium 4.0 Chloride 105 Carbon Dioxide 25 Anion Gap 7 L BUN 10 Creatinine 0.80 Estim Creat Clear Calc Not Reportable Estimated GFR > 60 Glucose 116 H Calcium 8.2 L Post-procedural complaints: none Patient Feedback: Patient satisfied with anesthetic care.
--- NOTE | 2022-04-17 12:50 | PM.PNGS ---
Progress Note: A&P Assessment and Plan (1) Perforation of sigmoid colon due to diverticulitis: Code(s): K57.20 - Diverticulitis of large intestine with perforation and abscess without bleeding Status: Acute Assessment and Plan: Will stop IV fluids and advance to full liquids today Increase activity Subjective Subjective Date/Time Seen: 04/17/22 12:50 Interval history: Tolerating clear liquids. No nausea or vomiting. Bowels moving and passing flatus. Mostly complaining of gas pains and RLQ incisional pain. Exam GI: Inspection: non-distended and incision (intact with glue) GI Palp: Yes Soft to palpation and Yes Tenderness to palpation present (GI) (incisional) Auscultation: normal bowel sounds Objective Data Vital Signs Vital Signs: Vital Signs - 24 hr 04/16/22 17:00 04/16/22 17:15 04/16/22 17:30 Temperature 36.4 C L Pulse Rate 79 93 81 Respiratory Rate 10 L 11 L 11 L Blood Pressure 98/55 L 103/66 104/70 Pulse Oximetry 100 100 100 Oxygen Delivery Simple Face Mask Simple Face Mask Room Air Oxygen Flow Rate 8 8 04/16/22 17:45 04/16/22 18:00 04/16/22 18:15 Temperature 36.9 C Pulse Rate 83 80 82 Respiratory Rate 19 13 13 Blood Pressure 110/73 111/69 111/67 Pulse Oximetry 100 95 98 Oxygen Delivery Room Air Room Air Room Air Oxygen Flow Rate 04/16/22 18:30 04/16/22 18:45 04/16/22 19:00 Temperature Pulse Rate 94 93 95 Respiratory Rate 18 16 16 Blood Pressure 111/80 102/79 115/67 Pulse Oximetry 99 100 100 Oxygen Delivery Room Air Room Air Room Air Oxygen Flow Rate 04/16/22 19:05 04/16/22 19:20 04/16/22 19:50 Temperature 36.9 C 36.6 C 36.9 C Pulse Rate 88 82 80 Respiratory Rate 14 14 14 Blood Pressure 122/59 L 120/57 L 121/59 L Pulse Oximetry 100 100 100 Oxygen Delivery Oxygen Flow Rate 04/16/22 20:50 04/16/22 22:00 04/17/22 00:50 Temperature 36.9 C 36.9 C 36.9 C Pulse Rate 78 78 74 Respiratory Rate 14 14 14 Blood Pressure 120/58 L 120/58 L 118/58 L Pulse Oximetry 100 100 100 Oxygen Delivery Oxygen Flow Rate 04/17/22 04:50 04/17/22 08:50 Temperature 36.7 C 36.4 C L Pulse Rate 76 69 Respiratory Rate 16 20 Blood Pressure 121/59 L 107/61 Pulse Oximetry 100 100 Oxygen Delivery Oxygen Flow Rate Intake/Output Intake/Output: Intake & Output 04/14/22 04/15/22 04/16/22 04/17/22 23:59 23:59 23:59 23:59 Intake Total 1200 2290 Balance 1200 2290 Meds/Results Medications: Active Medications Generic Name Dose Route Start Last Admin Trade Name Freq PRN Reason Stop Dose Admin Acetaminophen 1,000 mg 04/16/22 20:00 04/17/22 08:22 Acetaminophen 500 Mg Tablet PO 1,000 mg Q6H EMORY Administration Alprazolam 0.25 mg 04/16/22 19:05 04/17/22 00:22 Alprazolam (*Crx) 0.25 Mg Tablet PO 0.25 mg TID PRN Administration Anxiety Bupropion HCl 150 mg 04/17/22 09:00 04/17/22 08:21 Bupropion Hcl Sr (12 Hr) 150 Mg Tab PO 150 mg DAILY EMORY Administration Enoxaparin Sodium 40 mg 04/17/22 09:00 04/17/22 08:22 Enoxaparin 40 Mg/0.4 Ml Syringe SUB-Q 40 mg DAILY EMORY Administration Lactated Ringer's 1,000 mls @ 100 mls/hr 04/16/22 19:05 04/17/22 08:21 Lr - Lactated Ringers Iv IV CONT 100 mls/hr .Q10H EMORY Administration Morphine Sulfate 2 mg 04/16/22 19:05 04/17/22 08:16 Morphine Sulfate (*Crx) 2 Mg/Ml Inj IV PUSH 2 mg Q2H PRN Administration Pain Rated 4-6 Morphine Sulfate 4 mg 04/16/22 19:05 Morphine Sulfate (*Crx) 4 Mg/Ml Inj IV PUSH Q2H PRN Pain Rated 7-10 Ondansetron HCl 4 mg 04/16/22 19:05 Ondansetron Inj 4 Mg/2 Ml Vial IV PUSH Q4H PRN Nausea And Vomiting Labs Labs: Laboratory Results - last 24 hr 04/17/22 04/17/22 05:19 05:19 WBC 11.1 H RBC 3.91 L Hgb 12.2 Hct 37.1 MCV 94.9 MCH 31.2 MCHC 32.9 RDW 12.4 Plt Count 183 MPV 10.3 Immature Gran % (Auto) 0.5 Neut % (Auto) 83.7 H Lymph % (Au
[2022-04-17 16:50] VITALS: BP 109/51; PULSE 85; RESP 16; TEMP 36.3; O2SAT 100
[2022-04-17] MEDS: oxyCODONE HCL (*CRX) 2.5 MG TAB IR PO (17:45)
[2022-04-17 19:52] VITALS: BP 117/62; PULSE 78; RESP 18; TEMP 36.9; O2SAT 100
[2022-04-17] MEDS: oxyCODONE HCL (*CRX) 5 MG TAB IR PO (22:06)
[2022-04-18] MEDS: ACETAMINOPHEN 500 MG TABLET 1000 MG PO ×4 (02:49→20:21)
[2022-04-18] MEDS: MORPHINE SULFATE (*CRX) 2 MG/ML INJ IV PUSH (02:52)
[2022-04-18 04:15] VITALS: BP 110/63; PULSE 72; RESP 18; TEMP 36.8; O2SAT 100
[2022-04-18] MEDS: oxyCODONE HCL (*CRX) 5 MG TAB IR PO ×4 (05:54→21:09)
[2022-04-18 06:01] LABS: Hematocrit 33.9 % (37.0-47.0); Mean Corpuscular HGB Conc 32.4 g/dl (32-36); Mean Corpuscular Hemoglobin 30.9 pg (26-34); Mean Corpuscular Volume 95.2 fl (80-100); Mean Platelet Volume 10.6 fl (7.4-10.4); Platelet Count Result 166 k/mm3 (150-375); Red Blood Count 3.56 M/mm3 (4.2-5.4); Red Cell Distribution Width 12.5 % (11.5-14.5); White Blood Count 8.3 K/mm3 (4.5-10.0)
[2022-04-18 06:16] LABS: Anion Gap 7 mmol/L (8-16); Blood Urea Nitrogen 10 mg/dL (7-17); Calcium 8.3 mg/dL (8.4-10.2); Carbon Dioxide 27 mmol/L (22-30); Chloride 103 mmol/L (98-107); Estimated Glomerular Filt Rate > 60; Glucose 94 mg/dL (65-110); Potassium 3.9 mmol/L (3.4-5.0); Sodium 137 mmol/L (137-145)
--- NOTE | 2022-04-18 09:46 | PM.PNGS ---
Progress Note: A&P Assessment and Plan (1) Perforation of sigmoid colon due to diverticulitis: Code(s): K57.20 - Diverticulitis of large intestine with perforation and abscess without bleeding Status: Acute Assessment and Plan: Continues to improve, tolerating full liquids. Required IV morphine for breakthrough pain overnight, but overall pain improving. Will advance to solid diet today and try avoiding IV analgesics. Encouraged ambulating and increasing activity as tolerated. Pathology pending. Plan I have discussed the patient's case and plan of care with Dr. Meza. Subjective Subjective Date/Time Seen: 04/18/22 09:46 Post Op day: 2 (Laparoscopic sigmoid colectomy, robotic-assisted) Patient reports: no new complaints, feels better, pain is less, tolerating liquids well, voiding w/o difficulty, flatus, bowel movement (x1 last night and x1 this morning) and afebrile Interval history: Chart reviewed. Patient feeling better today. Believes her gas pains have improved significantly since yesterday and has been ambulating multiple times through the night and this morning. Tolerating full liquids, no nausea or bloating. Pain is controlled this morning, but did require a dose of IV Morphine around 0200 this morning. Review of Systems Review of Systems: All systems reviewed & are unremarkable except as noted in HPI and below ENT: Denies headache(s) Cardiovascular: Cardiovascular: Reports no additional cardiovascular complaints, Denies chest pain and Denies leg edema Respiratory: Respiratory: Reports no additional respiratory complaints, Denies cough and Denies dyspnea Gastrointestinal: Gastrointestinal: Reports as per HPI and Reports no additional gastrointestinal complaints Exam Const: General: comfortable, no acute distress and awake Orientation/consciousness: patient oriented x3 Resp: Effort & Inspection: normal respiratory effort Auscultation: clear to auscultation bilaterally Cardio: Rate: regular rate Rhythm: regular rhythm GI: Inspection: non-distended and incision (incisions dry and intact) GI Palp: Yes Soft to palpation and Yes Tenderness to palpation present (GI) (incisional) Auscultation: normal bowel sounds Neuro: General: moves all extremities and no focal motor deficits Extrem: General: no calf tenderness and no edema Psych: Mental Status: mental status grossly normal Insight: Good insight present (Psych) Objective Data Vital Signs Vital Signs: Vital Signs - 24 hr 04/17/22 16:50 04/17/22 19:52 04/18/22 04:15 Temperature 97.3 F L 98.5 F 98.2 F Pulse Rate 85 78 72 Respiratory Rate 16 18 18 Blood Pressure 109/51 L 117/62 110/63 Pulse Oximetry 100 100 100 Intake/Output Intake/Output: Intake & Output 04/15/22 04/16/22 04/17/22 04/18/22 23:59 23:59 23:59 23:59 Intake Total 1200 3507 400 Balance 1200 3507 400 Meds/Results Medications: Active Medications Generic Name Dose Route Start Last Admin Trade Name Freq PRN Reason Stop Dose Admin Acetaminophen 1,000 mg 04/16/22 20:00 04/18/22 02:49 Acetaminophen 500 Mg Tablet PO 1,000 mg Q6H EMORY Administration Alprazolam 0.25 mg 04/16/22 19:05 04/17/22 15:34 Alprazolam (*Crx) 0.25 Mg Tablet PO 0.25 mg TID PRN Administration Anxiety Bupropion HCl 150 mg 04/17/22 09:00 04/17/22 08:21 Bupropion Hcl Sr (12 Hr) 150 Mg Tab PO 150 mg DAILY EMORY Administration Enoxaparin Sodium 40 mg 04/17/22 09:00 04/17/22 08:22 Enoxaparin 40 Mg/0.4 Ml Syringe SUB-Q 40 mg DAILY EOMRY Administration Morphine Sulfate 2 mg 04/16/22 19:05 04/18/22 02:52 Morphine Sulfate (*Crx) 2 Mg/Ml Inj IV PUSH 2 mg Q2H PRN Administration Pain Rated 4-6 Morphine Sulfate 4 mg 04/16/22 19:05 Morphine Sulfate (*Crx) 4 Mg/Ml Inj IV PUSH Q2H PRN Pain Rated 7-10 Ondansetron HCl 4 mg 04/16/22 19:05 Ondansetron Inj 4 Mg/2 Ml Vial IV PUSH Q4H PRN Nausea And Vo
[2022-04-18] MEDS: ENOXAPARIN 40 MG/0.4 ML SYRINGE SUB-Q (09:48)
[2022-04-18] MEDS: buPROPion HCL SR (12 HR) 150 MG TAB PO (09:48)
[2022-04-18] MEDS: ONDANSETRON INJ 4 MG/2 ML VIAL IV PUSH (11:03)
[2022-04-18 21:00] VITALS: BP 105/59; PULSE 69; RESP 18; TEMP 36.5; O2SAT 100
[2022-04-18] MEDS: MELATONIN 5 MG TABLET PO (21:09)
[2022-04-19] MEDS: oxyCODONE HCL (*CRX) 5 MG TAB IR PO ×3 (03:34→21:40)
[2022-04-19 04:21] VITALS: BP 109/66; PULSE 62; RESP 18; TEMP 36.6; O2SAT 100
[2022-04-19] MEDS: ACETAMINOPHEN 500 MG TABLET 1000 MG PO ×4 (04:29→20:16)
[2022-04-19 06:19] LABS: Hematocrit 34.2 % (37.0-47.0); Hemoglobin 10.9 g/dL (12.0-15.0); Mean Corpuscular HGB Conc 31.9 g/dl (32-36); Mean Corpuscular Hemoglobin 30.8 pg (26-34); Mean Corpuscular Volume 96.6 fl (80-100); Mean Platelet Volume 10.5 fl (7.4-10.4); Platelet Count Result 153 k/mm3 (150-375); Red Blood Count 3.54 M/mm3 (4.2-5.4); Red Cell Distribution Width 12.3 % (11.5-14.5); White Blood Count 6.2 K/mm3 (4.5-10.0)
[2022-04-19 08:20] VITALS: PULSE 62; RESP 18; O2SAT 100
[2022-04-19] MEDS: ENOXAPARIN 40 MG/0.4 ML SYRINGE SUB-Q (08:21)
[2022-04-19] MEDS: buPROPion HCL SR (12 HR) 150 MG TAB PO (08:21)
--- NOTE | 2022-04-19 15:00 | PM.PNGS ---
Progress Note: A&P Assessment and Plan (1) Perforation of sigmoid colon due to diverticulitis: Code(s): K57.20 - Diverticulitis of large intestine with perforation and abscess without bleeding Status: Acute Assessment and Plan: Continue soft diet as tolerated. Continue working with pain control with prn Oxycodone. Possibly home tomorrow if continuing to improve. Subjective Subjective Date/Time Seen: 04/19/22 15:00 Interval history: Still having RLQ incisional pain. Bowels moving. Tolerating diet. Concerned about going home with the level of her pain currently. Exam GI: Inspection: non-distended and incision (intact with glue) GI Palp: Yes Soft to palpation, Yes Tenderness to palpation present (GI) (RLQ incisional), No Guarding due to palpation present (GI) and No Rebound tenderness present Auscultation: normal bowel sounds Objective Data Vital Signs Vital Signs: Vital Signs - 24 hr 04/18/22 21:00 04/19/22 04:21 Temperature 36.5 C 36.6 C Pulse Rate 69 62 Respiratory Rate 18 18 Blood Pressure 105/59 L 109/66 Pulse Oximetry 100 100 Intake/Output Intake/Output: Intake & Output 04/16/22 04/17/22 04/18/22 04/19/22 23:59 23:59 23:59 23:59 Intake Total 1200 3507 1750 540 Balance 1200 3507 1750 540 Meds/Results Medications: Active Medications Generic Name Dose Route Start Last Admin Trade Name Freq PRN Reason Stop Dose Admin Acetaminophen 1,000 mg 04/16/22 20:00 04/19/22 14:11 Acetaminophen 500 Mg Tablet PO 1,000 mg Q6H EMORY Administration Alprazolam 0.25 mg 04/16/22 19:05 04/17/22 15:34 Alprazolam (*Crx) 0.25 Mg Tablet PO 0.25 mg TID PRN Administration Anxiety Bupropion HCl 150 mg 04/17/22 09:00 04/19/22 08:21 Bupropion Hcl Sr (12 Hr) 150 Mg Tab PO 150 mg DAILY EMORY Administration Enoxaparin Sodium 40 mg 04/17/22 09:00 04/19/22 08:21 Enoxaparin 40 Mg/0.4 Ml Syringe SUB-Q 40 mg DAILY EMORY Administration Melatonin 5 mg 04/18/22 21:00 04/18/22 21:09 Melatonin 5 Mg Tablet PO 5 mg HS EMORY Administration Morphine Sulfate 2 mg 04/16/22 19:05 04/18/22 02:52 Morphine Sulfate (*Crx) 2 Mg/Ml Inj IV PUSH 2 mg Q2H PRN Administration Pain Rated 4-6 Morphine Sulfate 4 mg 04/16/22 19:05 Morphine Sulfate (*Crx) 4 Mg/Ml Inj IV PUSH Q2H PRN Pain Rated 7-10 Ondansetron HCl 4 mg 04/16/22 19:05 04/18/22 11:03 Ondansetron Inj 4 Mg/2 Ml Vial IV PUSH 4 mg Q4H PRN Administration Nausea And Vomiting Oxycodone HCl 2.5 mg 04/17/22 12:53 04/17/22 17:45 Oxycodone Hcl (*Crx) 2.5 Mg Tab Ir PO 2.5 mg Q4H PRN Administration Pain Rated 4-6 Oxycodone HCl 5 mg 04/17/22 12:53 04/19/22 10:43 Oxycodone Hcl (*Crx) 5 Mg Tab Ir PO 5 mg Q4H PRN Administration Pain Rated 7-10 Labs Labs: Laboratory Results - last 24 hr 04/19/22 05:37 WBC 6.2 RBC 3.54 L Hgb 10.9 L Hct 34.2 L MCV 96.6 MCH 30.8 MCHC 31.9 L RDW 12.3 Plt Count 153 MPV 10.5 H
[2022-04-19] MEDS: oxyCODONE HCL (*CRX) 5 MG TAB IR 10 MG PO (15:26)
[2022-04-19] MEDS: MELATONIN 5 MG TABLET PO (20:16)
[2022-04-19 22:00] VITALS: BP 108/67; PULSE 75; RESP 18; TEMP 35.9; O2SAT 100
[2022-04-20] MEDS: ACETAMINOPHEN 500 MG TABLET 1000 MG PO ×3 (02:03→14:26)
[2022-04-20 06:00] VITALS: BP 124/75; PULSE 72; RESP 18; TEMP 35.5; O2SAT 98
[2022-04-20] MEDS: ONDANSETRON INJ 4 MG/2 ML VIAL IV PUSH (06:51)
[2022-04-20] MEDS: oxyCODONE HCL (*CRX) 5 MG TAB IR 10 MG PO (06:53)
[2022-04-20 07:04] LABS: Hemoglobin 12.3 g/dL (12.0-15.0); Mean Corpuscular HGB Conc 33.2 g/dl (32-36); Mean Corpuscular Hemoglobin 31.5 pg (26-34); Mean Corpuscular Volume 94.6 fl (80-100); Mean Platelet Volume 10.1 fl (7.4-10.4); Platelet Count Result 186 k/mm3 (150-375); Red Blood Count 3.91 M/mm3 (4.2-5.4); Red Cell Distribution Width 12.2 % (11.5-14.5); White Blood Count 6.2 K/mm3 (4.5-10.0)
[2022-04-20 07:22] LABS: Anion Gap 6 mmol/L (8-16); Blood Urea Nitrogen 14 mg/dL (7-17); CRP 0.6 mg/dL (<1.0); Calcium 9.3 mg/dL (8.4-10.2); Carbon Dioxide 30 mmol/L (22-30); Chloride 102 mmol/L (98-107); Estimated Glomerular Filt Rate > 60; Glucose 95 mg/dL (65-110); Potassium 4.1 mmol/L (3.4-5.0); Sodium 138 mmol/L (137-145)
[2022-04-20] MEDS: buPROPion HCL SR (12 HR) 150 MG TAB PO (08:55)
[2022-04-20 09:00] VITALS: O2SAT 98
[2022-04-20] MEDS: oxyCODONE HCL (*CRX) 5 MG TAB IR PO ×2 (12:21→18:39)
[2022-04-20 14:33] VITALS: BP 99/64; PULSE 82; RESP 16; TEMP 35.9; O2SAT 100
--- NOTE | 2022-04-20 18:25 | PM.DS ---
DS: Admitting Diagnosis Discharge Date 02/2022 Admitting Diagnosis recurrent sigmoid diverticulitis and diverticulosis DS: Discharge Diagnosis Discharge Diagnosis (1) Diverticulosis: Code(s): K57.90 - Diverticulosis of intestine, part unspecified, without perforation or abscess without bleeding Status: Acute Assessment and Plan: The patient presented for a elective robotic sigmoid colon resection after several episodes of diverticulitis requiring antibiotics over the last 2 years. Patient had a fairly uneventful postoperative course although her right lower quadrant incision for extraction gave her good amount of pain. She is having bowel movements and tolerating soft diet. Instructions were reviewed with her and are listed on her discharge instruction sheet. (2) Overweight with body mass index (BMI) of 28 to 28.9 in adult: Code(s): E66.3 - Overweight; Z68.28 - Body mass index [BMI] 28.0-28.9, adult Status: Acute Assessment and Plan: Patient will be following a low-fiber diet for 2 weeks then after seen Dr. Gordon as an outpatient she may switch to a high-fiber diet. DS: Summary Hospital Course Reason for hospitalization: Hospitalized following an elective robotic sigmoid colon resection with reanastomosis. Hospital Course: The patient presented for a elective robotic sigmoid colon resection after several episodes of diverticulitis requiring antibiotics over the last 2 years. Patient had a fairly uneventful postoperative course although her right lower quadrant incision for extraction gave her good amount of pain. She is having bowel movements and tolerating soft diet. Instructions were reviewed with her and are listed on her discharge instruction sheet Status at Discharge Cognitive/behavioral status at discharge: Progressing back toward normal. Functional status at discharge: independent ambulation Overall status at discharge: patient is not back to baseline ( Still moving slowly but walking on her own.) Time Spent with Patient Time attestation: Total time spent providing and/or coordinating discharge services: Exam Const: General: cooperative, alert and awake Orientation/consciousness: patient oriented x3 HENMT: Head: normal to inspection Mouth: Yes moist mucous membranes Eyes: Sclera: sclerae normal Pupils: Equal, round and reactive pupils present Neck: Neck: normal visual inspection and no JVD Chest: Chest palpation & inspection: normal inspection of the chest Resp: Effort & Inspection: normal respiratory effort Cardio: Rate: regular rate GI: Inspection: incision ( All incisions clean and dry.) and no visible herniation GI Palp: Yes abdominal tenderness ( Mild incisional) Auscultation: normal bowel sounds Other: Surgical glue in place on all incisions. Neuro: General: patient oriented x3 Cranial nerves: Yes Equal, round and reactive pupils present DS: Data Data Completed and Pending Completed studies during hospitalization: Pending at discharge 04/16/22 16:29 Surgical [PTH] Routine Labs on day of discharge: Labs from last 24 hours 04/20/22 04/20/22 06:33 06:33 WBC 6.2 RBC 3.91 L Hgb 12.3 Hct 37.0 MCV 94.6 MCH 31.5 MCHC 33.2 RDW 12.2 Plt Count 186 MPV 10.1 Sodium 138 Potassium 4.1 Chloride 102 Carbon Dioxide 30 Anion Gap 6 L BUN 14 Creatinine 0.80 Estim Creat Clear Calc Not Reportable Estimated GFR > 60 Glucose 95 Calcium 9.3 C-Reactive Protein 0.6 Discharge Plan Discharge Attending physician on discharge: Deonte Gordon Discharging Clinician: Shaka Kitchen Anticipated Discharge Date/Time: 04/20/22 18:24 Patient Disposition: Home, Self-Care Activity: may shower and other - see discharge instructions Diet: low fiber Wound Care Instructions: other - see discharge instructions Discharge Instructions: Postoperative instructions may shower,
== END 2022-04-20 19:03 | disposition home or self-care (01) | DRG 331 ==
LOC: ANH3MED 19:23
PROVIDERS: Nurse Practitioner Family; Admitting Provider Surgery; PCP Family Medicine; Visit Provider Surgery
PROC: 0DTNFZZ Resection of Sigmoid Colon, Via Natural or Artificial Opening With Percutaneous Endoscopic Assistance (ICD-10-PCS; principal; 2022-04-16 12:00)
DX: K57.20 Diverticulitis of large intestine with perforation and abscess without bleeding (principal); F41.9 Anxiety disorder, unspecified; Z90.49 Acquired absence of other specified parts of digestive tract; Z28.21 Immunization not carried out because of patient refusal
CPT/HCPCS: 36415; 80048; 85025; 85027; 86140; 86850; 86900; 86901; 88307; A9270; C1729; C9290; J0690; J1100; J1170; J1650; J1885; J2250; J2270; J2405; J2704; J2710; J3010; J7030; J7120

== ENCOUNTER → 2022-11-05 15:20 | Outpatient (CLI) | payer OTHER, SELFPAY ==
--- NOTE | ~2022-11-05 | US_ITS ---
Pelvic ultrasound. Clinical History: Heavy bleeding Technique: Realtime transvaginal scanning of the pelvis was performed. Color flow Doppler and Doppler spectral analysis were performed. Findings: The uterus is anteverted. The endometrial stripe has a thickness of 5 mm. No focal mass is identified. The right ovary measures 2.6 x 2.8 x 1.6 cm. No significant right ovarian or adnexal mass is seen. The left ovary measures 2.7 x 1.7 x 1.5 cm. No significant left ovarian or adnexal mass is seen. Vascular flow present in both ovaries on Doppler spectral analysis. There is no evidence of free fluid in the cul de sac. Impression: Unremarkable pelvic ultrasound. Reviewed, dictated and finalized at location . Impression: Unremarkable pelvic ultrasound.
== END ==
PROVIDERS: PCP Obstetrics & Gynecology; Visit Provider Nurse Practitioner Family
DX: N92.0 Excessive and frequent menstruation with regular cycle (principal); N94.6 Dysmenorrhea, unspecified; R10.30 Lower abdominal pain, unspecified
CPT/HCPCS: 76830

== ENCOUNTER 2023-04-09 13:14 | Outpatient (CLI) | payer OTHER, SELFPAY ==
[2023-04-09 13:55] LABS: Anion Gap 11 mmol/L (8-16); Blood Urea Nitrogen 17 mg/dL (7-17); Calcium 9.1 mg/dL (8.4-10.2); Carbon Dioxide 23 mmol/L (22-30); Chloride 103 mmol/L (98-107); Cholesterol 197 mg/dL (0-200); Estimated Glomerular Filt Rate > 60; Glucose 84 mg/dL (65-110); HDL Direct 87 mg/dL; Potassium 3.9 mmol/L (3.4-5.0); Sodium 137 mmol/L (137-145); Triglycerides 56 mg/dL (<150)
[2023-04-09 14:05] LABS: LDL Cholesterol Direct 93 mg/dL
== END 2023-04-09 13:15 | disposition home or self-care (01) ==
LOC: ANHLAB 13:16
PROVIDERS: PCP Family Medicine; Visit Provider Nurse Practitioner Family
DX: Z13.220 Encounter for screening for lipoid disorders (principal); Z13.1 Encounter for screening for diabetes mellitus
CPT/HCPCS: 36415; 80048; 80061

== ENCOUNTER 2023-12-19 09:52 | Outpatient (CLI) | payer OTHER, SELFPAY ==
--- NOTE | ~2023-12-19 | CT_ITS ---
EXAMINATION: CT abdomen pelvis w con DATE: 12/19/2023 10:15 INDICATION: Low abdominal pain, unspecified. TECHNIQUE: Computed tomography (CT) of the abdomen and pelvis was performed with 100 mL Omnipaque 350 intravenous contrast. Automated exposure control and iterative reconstruction technique were employe d. The dose-length product was 560.14 mGy-cm. COMPARISON: CT abdomen and pelvis 02/15/2022 FINDINGS: The visualized portions of the lung bases demonstrate mild atelectasis. No pleural effusion . The heart size is normal. No pericardial effusion. There is a 9 mm cyst in the liver. There are kavitha nges of cholecystectomy. The spleen, pancreas, adrenal glands, and kidneys are normal. There is an an astomosis in the sigmoid colon. There are no dilated loops of bowel. The appendix is not visualized. There is a 14 mm dominant follicle in left ovary. There are no pathologically enlarged lymph nodes. T here is no free intraperitoneal fluid. The bones are unremarkable. IMPRESSION: 1. No specific etiology for the patient's symptoms. Reviewed, dictated and finalized at location A.
== END 2023-12-19 09:53 ==
LOC: MICIMG 09:53
PROVIDERS: PCP Nurse Practitioner Family; Visit Provider Nurse Practitioner Family
DX: R10.30 Lower abdominal pain, unspecified (principal)
CPT/HCPCS: 74177; Q9967

== ENCOUNTER 2023-12-26 11:23 | Outpatient (CLI) | payer OTHER, SELFPAY ==
[2023-12-26 12:40] LABS: Hematocrit 39.5 % (37.0-47.0); Hemoglobin 13.3 g/dL (12.0-15.0); Mean Corpuscular HGB Conc 33.7 g/dl (32-36); Mean Corpuscular Hemoglobin 31.7 pg (26-34); Mean Platelet Volume 10.4 fl (7.4-10.4); Platelet Count Result 229 k/mm3 (150-375); Red Cell Distribution Width 11.8 % (11.5-14.5); White Blood Count 6.8 K/mm3 (4.5-10.0)
[2023-12-26 12:41] LABS: Add Urine Microscopic? NO; Appearance Urine Clear (Clear); Bilirubin Urine Negative (Negative); Blood Urine Negative (Negative); Color Urine Yellow (Yellow); Glucose Urine UA Negative (Negative); Ketones Urine Negative (Negative); Leukocyte Esterase Ur Negative LEU/UL (Negative); Nitrate Urine Negative (Negative); Protein Urine Negative (Negative); Specific Grav Ur 1.009 (1.001-1.035); Urobilinogen Urine 0.2 mg/dL (<2.0); pH Urine 5.5 (5.0-9.0)
[2023-12-26 12:53] LABS: Alanine Aminotransferase 21 U/L (6-35); Albumin Level 4.8 g/dL (3.5-5.1); Alkaline Phosphatase 63 U/L (38-126); Anion Gap 12 mmol/L (4-12); Aspartate Amino Transferase 31 U/L (14-36); Bilirubin,Total 0.4 mg/dL (0.2-1.3); Blood Urea Nitrogen 24 mg/dL (7-17); CRP < 0.5 mg/dL (<1.0); Calcium 9.6 mg/dL (8.4-10.2); Carbon Dioxide 26 mmol/L (22-30); Chloride 101 mmol/L (98-107); Estimated Glomerular Filt Rate 54; Glucose 83 mg/dL (65-110); Lipase 104 U/L (23-300); Potassium 4.2 mmol/L (3.4-5.0); Sodium 139 mmol/L (137-145)
[2023-12-26 13:59] LABS: Erythrocyte Sedimentation Rate 16 mm/hr (0-20)
== END 2023-12-26 11:24 | disposition home or self-care (01) ==
LOC: ANHLAB 11:25
PROVIDERS: PCP Nurse Practitioner Family; Visit Provider Nurse Practitioner Family
DX: R10.30 Lower abdominal pain, unspecified (principal)
CPT/HCPCS: 36415; 80053; 81003; 83690; 85027; 85652; 86140

== ENCOUNTER 2024-07-22 00:34 | Day surgery (SDC) | payer OTHER, SELFPAY ==
[2024-07-19 12:20] VITALS: BMI 29.0
--- OUTSIDE RECORDS SUMMARY | 2024-07-22 00:37 | XMS_ITS | Referral Summary ---
Author Organization [facility] Address [address] [place] [address] Care Team Providers Care Torts Law Professor Name Role Phone Yuriy Carr MD Primary Care Provider [phone] Source Comments [facility],non-owned Affiliates and Associated Physician Practices is amultiple site organization consisting of ambulatory clinics and hospital sitesin [place], [place], [place] and [place]. This disclosure is being madepursuant to the Care Everywhere program and may not contain all information available regarding this patient. Last updated 18.[facility] [employer] Social History Tobacco Use Types Packs/Day Years Used Date Smoking Tobacco: Never Assessed Sex and Gender Information Value Date Recorded Sex Assigned at Not on file Gender Identity Not on file Sexual Orientation Not on file Plan of Treatment Not on file Care Teams Torts Law Professor Relationship Specialty Start Date End Date Yuriy Carr MD [address] [place] [address] PCP - General 08/05/08
--- OUTSIDE RECORDS SUMMARY | 2024-07-22 00:37 | XMS_ITS | Encounter Summary ---
Author Organization [facility] Address [address] [place] [address] Care Team Providers Care Special Officer Name Role Phone Yuriy Carr MD Primary Care Provider [phone] Encounter Details Date Type Department Care Team (Late st Contact Info) Description 04/18/2020 Lab Requisition [facility] [address] [place] [id number] Dez Bledsoe MD [address] [place] [address] Social History Tobacco Use Types Packs/Day Years Used Date Smoking Tobacco: Never Assessed Sex and Gender Information Value Date Recorded Sex Assigned at Not on file Gender Identity Not on file Sexual Orientation Not on file documented as of this encounter Plan of Treatment Not on file documented as of this encounter Procedures Procedure Name Priority Date/Time Associated Diagnosis Comments DERMATOPATHOLOGY Routine 04/14/2020 12:0 0 AM DATA SOLUTIONS ARCHITECT documented in this encounter Results * DERMATOPATHOLOGY (04/14/2020 12:00 AM DATA SOLUTIONS ARCHITECT) Case Report Dermatopathology Report Case: [id number] Authorizing Provider: Dez Bledsoe MD Collected: 04/14/2020 12:00 AM Ordering Location: [facility] Received: 04/18/2020 07:13 AM Pathologist: Lin Graham MD Specimen: Skin, left chest 0 4:08 PM DATA SOLUTIONS ARCHITECT DERMATOPATHOLOGY LABORATORY Final Diagnosis Specimen A. SKIN, left chest: INTRADERMAL MELANOCYTIC NEVUS (D22.5) 0 4:08 PM DATA SOLUTIONS ARCHITECT DERMATOPATHOLOGY LABORATORY Clinical History Nevus R/O atypia. Path#[id number] 0 4:08 PM [facility] DERMATOPATHOLOGY LABORATORY Gross Description Specimen A: Received is one formalin filled container labeled with the patient's name and designated left chest. The specimen consists of a shave biopsy measuring 7x6x3 mm. Jar 0. 0 4:08 PM [facility] DERMATOPATHOLOGY LABORATORY Microscopic Description Specimen A. SKIN, left chest: There are nests of cytologically bland melanocytes within the dermis that mature with depth. 0 4:08 PM [facility] DERMATOPATHOLOGY LABORATORY Disclaimer An external and internal positive and negative controls are appropriate for the histochemical, immunohistochemical and immunofluorescence stain(s) in this case (if any), except where stated explicitly. The performance characteristics of the stain(s) cited in this report were developed and its performance characteristic determined by the Dermatopathology Laboratory at [facility], directed by Dr. Doug Fernando. These tests need not be, and therefore are not, approved by the [place] Food and Drug Administration. The tests are used for clinical purposes. Billing Codes Specimen Charges Stain Charges 27647 1 0 4:08 PM [facility] DERMATOPATHOLOGY LABORATORY Embedded Images 0 4:08 PM [facility] DERMATOPATHOLOGY LABORATORY Pathology/Cytolog y TISSUE SPECIMEN FROM SKIN / Unknown 04/14/2020 04/18/2020 7:13 AM DATA SOLUTIONS ARCHITECT Dez Bledsoe MD LAB - PATHOLOGY/CYTO LOGY ORDERABLES DERMATOPATHOLOGY LABORATORY [facility] - Department of Dermatology [facility] Medicine [address] [place] [address], [address] [phone] documented in this encounter Visit Diagnoses Not on filedocumented in this encounter Care Teams Special Officer Relationship Specialty Start Date End Date Yuriy Carr MD [address] [place] [address] PCP - General 08/05/08 documented as of this encounter
--- OUTSIDE RECORDS SUMMARY | 2024-07-22 00:37 | XMS_ITS | Patient Health Summary ---
Author Organization [facility] Address [address] [place] [address] Care Team Providers Care Spreader Operator Automatic Name Role Phone Yuriy Carr MD Primary Care Provider [phone] Note from [facility],non-owned Affiliates and Associated Physician Practices is amultiple site organization consisting of ambulatory clinics and hospital sitesin [place], [place], [place] and [place]. This disclosure is being madepursuant to the Care Everywhere program and may not contain all information available regarding this patient. Last updated 18.[facility] Social History Tobacco Use Types Packs/Day Years Used Date Smoking Tobacco: Never Assessed Sex and Gender Information Value Date Recorded Sex Assigned at Not on file Gender Identity Not on file Sexual Orientation Not on file Procedures * DERMATOPATHOLOGY(Performed 02/22/2022) * DERMATOPATHOLOGY(Performed 04/14/2020) * CULTURE URINE(Performed 10/12/2013) * CULTURE URINE(Performed 09/22/2013) Results * DERMATOPATHOLOGY (02/22/2022 12:00 AM CDT) Only the most recent of2 resultswithin the time period is included. Case Report Dermatopathology Report Case: [id number] Authorizing Provider: Dez Bledsoe MD Collected: 02/22/2022 12:00 AM Ordering Location: [facility] Lab Received: 02/25/2022 06:29 AM Pathologist: Savanah Fernando MD Specimen: Skin, right neck 2 5:08 PM CDT DERMATOPATHOLOGY LABORATORY Final Diagnosis Specimen A. SKIN, right neck: INTRADERMAL MELANOCYTIC NEVUS WITH CONGENITAL FEATURES (D22.9) 2 5:08 PM CDT DERMATOPATHOLOGY LABORATORY Clinical History Irritated Nevus vs. Other. Path# [id number] 2 5:08 PM CDT DERMATOPATHOLOGY LABORATORY Gross Description Specimen A: Received is one formalin filled container labeled with the patient's name and designated right neck. The specimen consists of a shave biopsy measuring [id number] and it is bisecetd. Jar 0. 2 5:08 PM CDT DERMATOPATHOLOGY LABORATORY Microscopic Description Specimen A. SKIN, right neck: There are nests of cytologically bland melanocytes within the dermis. Some of these melanocytes are concentrated around blood vessels and adnexal structures. 2 5:08 PM CDT DERMATOPATHOLOGY LABORATORY Disclaimer An external and internal positive and negative controls are appropriate for the histochemical, immunohistochemical and immunofluorescence stain(s) in this case (if any), except where stated explicitly. The performance characteristics of the stain(s) cited in this report were developed and its performance characteristic determined by the Dermatopathology Laboratory at [facility], directed by Dr. Doug Fernando. These tests need not be, and therefore are not, approved by the [place] Food and Drug Administration. The tests are used for clinical purposes. Billing Codes Specimen Charges Stain Charges 91574 1 2 5:08 PM CDT DERMATOPATHOLOGY LABORATORY Embedded Images 2 5:08 PM CDT DERMATOPATHOLOGY LABORATORY Pathology/Cytolog y TISSUE SPECIMEN FROM SKIN / Unknown 02/22/2022 02/25/2022 6:29 AM CDT Dez Bledsoe MD LAB - PATHOLOGY/CYTO LOGY ORDERABLES DERMATOPATHOLOGY LABORATORY [facility] Department of Dermatology [address], [address] [phone] * CULTURE URINE (10/12/2013 12:15 PM CDT) Only the most recent of2 resultswithin the time period is included. Culture Urine Less than 10,000 CFU/ML of Normal Urogenital/ Skin Adrianna after 48 Hours [facility] Comment:. Urine specimen (specimen) URINE SPECIMEN OBTAINED BY CLEAN CATCH PROCEDURE / Unknown 10/12/2013 12:15 PM CDT 10/12/2013 3:45 PM CDT Narrative [facility] - 10/14/2013 12:35 PM CDT AndersonSpecimen#[id number] Reynaldo Loc/Rm/Bed: POST PART/ CLN CATCH U Historical Provider LAB - MICROBIOLOG Y ORDERABLES Performing Organization Address City/State/[facility] Co de Phone Number [address] [phone] Care Teams Spreader Operator Automatic Relationship Specialty Start Date End Date Yuriy Carr MD [address] [place] [address] PCP - General 08/05/08
--- OUTSIDE RECORDS SUMMARY | 2024-07-22 00:37 | XMS_ITS | Clinical Summary ---
Author Organization [facility] Address [address] [place] [address] Care Team Providers Care Saloon Keeper Name Role Phone Yuriy Carr MD Primary Care Provider [phone] Source Comments [facility] [employer],non-owned Affiliates and Associated Physician Practices is amultiple site organization consisting of ambulatory clinics and hospital sitesin [place], [place], [place] and [place]. This disclosure is being madepursuant to the Care Everywhere program and may not contain all information available regarding this patient. Last updated 18.[facility] [employer] Social History Tobacco Use Types Packs/Day Years Used Date Smoking Tobacco: Never Assessed Sex and Gender Information Value Date Recorded Sex Assigned at Not on file Gender Identity Not on file Sexual Orientation Not on file Plan of Treatment Health Maintenance Due Date Last Done Comments LIPID TESTING 1979 MAMMOGRAM 1979 PAP SMEAR 1979 HIV SCREENING 12/23/1994 HEPATITIS C SCREENING 12/19/1997 DTAP/TDAP/TD VACCINES (1 - Tdap) 12/23/1998 HEPATITIS B VACCINE (1 of 3 - 19+ 3-dose series) 12/23/1998 COVID-19 VACCINE (2023-2 5 season) 2024 INFLUENZA VACCINE (#1) 2024 DEPRESSION SCREENING 05/12/2024 ZOSTER VACCINE (1 of 2) 12/23/2029 HIB VACCINE Aged Out No longer eligi ble based on patient's age to complete this topic HPV VACCINE Aged Out No longer eligi ble based on patient's age to complete this topic MENINGOCOCCAL (Group B) VACC INE SHARED DECISION-MAKING Aged Out No longer eligibl e based on patient's age to complete this topic MENINGOCOCCAL GROUPS A/C/Y/W VACCINE Aged Out No longer eligible b ased on patient's age to complete this topic PNEUMOCOCCAL VACCINE Aged Out No long er eligible based on patient's age to complete this topic Care Teams Saloon Keeper Relationship Specialty Start Date End Date Yuriy Carr MD [address] [place] [address] PCP - General 08/05/08
--- OUTSIDE RECORDS SUMMARY | 2024-07-22 00:37 | XMS_ITS | Encounter Summary ---
Author Organization [facility] Address [address] [place] [address] Care Team Providers Care Technical Solutions Consultant Name Role Phone Yuriy Carr MD Primary Care Provider Encounter Details Date Type Department Care Team (Late st Contact Info) Description 02/25/2022 Lab Requisition [facility] [address] [place] [id number] Dez Bledsoe MD [address] [place] [id number] Social History Tobacco Use Types Packs/Day Years Used Date Smoking Tobacco: Never Assessed Sex and Gender Information Value Date Recorded Sex Assigned at Not on file Gender Identity Not on file Sexual Orientation Not on file documented as of this encounter Plan of Treatment Not on file documented as of this encounter Procedures Procedure Name Priority Date/Time Associated Diagnosis Comments DERMATOPATHOLOGY Routine 02/22/2022 12:0 0 AM CDT documented in this encounter Results * DERMATOPATHOLOGY (02/22/2022 12:00 AM CDT) Case Report Dermatopathology Report Case: [id number] Authorizing Provider: Dez Bledsoe MD Collected: 02/22/2022 12:00 AM Ordering Location: [facility] Received: 02/25/2022 06:29 AM Pathologist: Savanah Fernando MD Specimen: Skin, right neck 2 5:08 PM CDT DERMATOPATHOLOGY LABORATORY Final Diagnosis Specimen A. SKIN, right neck: INTRADERMAL MELANOCYTIC NEVUS WITH CONGENITAL FEATURES (D22.9) 2 5:08 PM CDT DERMATOPATHOLOGY LABORATORY Clinical History Irritated Nevus vs. Other. Path# [id number] 2 5:08 PM CDT DERMATOPATHOLOGY LABORATORY Gross Description Specimen A: Received is one formalin filled container labeled with the patient's name and designated right neck. The specimen consists of a shave biopsy measuring [id number] and it is bisecetd. Jar 0. 2 [...] characteristic determined by the Dermatopathology Laboratory at [facility], directed by Dr. Doug Fernando. These tests need not be, and therefore are not, approved by the [place] Food and Drug Administration. The tests are used for clinical purposes. Billing Codes Specimen Charges Stain Charges 34270 1 2 5:08 PM CDT DERMATOPATHOLOGY LABORATORY Embedded Images 2 5:08 PM CDT DERMATOPATHOLOGY LABORATORY Pathology/Cytolog y TISSUE SPECIMEN FROM SKIN / Unknown 02/22/2022 02/25/2022 6:29 AM CDT Dez Bledsoe MD LAB - PATHOLOGY/CYTO LOGY ORDERABLES DERMATOPATHOLOGY LABORATORY [facility] - Department of Dermatology [facility] Medicine [address] [place] [address], [address] [phone] documented in this encounter Visit Diagnoses Not on filedocumented in this encounter Care Teams Technical Solutions Consultant Relationship Specialty Start Date End Date Yuriy Carr MD [address] [place] [address] PCP - General 08/05/08 documented as of this encounter
--- OUTSIDE RECORDS SUMMARY | 2024-07-22 00:37 | XMS_ITS | Patient Health Record ---
Author Organization [email or web address] [facility] Address [address] [place] [address] Care Team Providers Care Fpga Engineer Name Role Phone SAM MARTINEZ Unavailable [phone] Allergies Allergen (clinical drug ingredient) Drug/Non Drug Allergy documented on EMR Reaction Allergy Type Onset Date Status metoclopramide Reglan depression Drug Allergy A ctive Reason For Referral No Information Medications Medication SIG (Take, Route, Fr equency, Duration) Notes Start Date End Date Status Zofran ODT 8 MG 1 tablet on the tong ue and allow to dissolve Orally Three Times A Day for 3 days 10/25/2021 Active Wellbutrin Active Zofran Active Plan Of Treatment No Information Insurance Providers Payer Name Payer Address Payer Phone Subscriber Number Group Number Insured Name Patient Relationship to Insured Coverage Start Date Coverage End Date [employer] [address] [place], [place] [id number] Era Molina Self - patient is the insured Medical (General) History Surgical History Surgery Date(Month/Year)
[2024-07-22] MEDS: LACTATED RINGERS 1,000 ML 150 ML IV CONT (07:40)
[2024-07-22 07:42] VITALS: BP 94/76; PULSE 91; RESP 18; TEMP 36.2; O2SAT 100
[2024-07-22 07:46] LABS: BEDSIDEPREGUCG Negative (Negative)
--- NOTE | 2024-07-22 08:05 | WPDANESEPPF ---
Anes - Initial Pre Proc Eval Procedure: Operation Date: 07/22/24 08:30 Proposed Procedures p Colonoscopy - Deonte Meza DO Date/Time: 07/22/24 08:05 Surgeon: Deonte Meza DO Pre Op Diagnosis: Rectal pain, rectal bleeding Patient Data Age: 43 Gender: F Height: 1.47 m Weight: 61.9 kg Last Vital Signs Temp 36.2 C L 07/22/24 07:42 Pulse 91 07/22/24 07:42 Resp 18 07/22/24 07:42 BP 94/76 L 07/22/24 07:42 Pulse Ox 100 07/22/24 07:42 O2 Del Method Room Air 07/22/24 07:42 Allergies Allergy/AdvReac Type Severity Reaction Status Date / Time metoclopramide Allergy Mild DEPRESSION, Verified 07/19/24 12:26 IRRITABLE Home Medications ?Medication ?Instructions ?Recorded ?Confirmed ?Type bupropion HCl 150 mg tablet,12 hr 150 mg PO DAILY 11/23/21 07/22/24 History sustained-release (Wellbutrin SR) Lactobacillus 1 cap PO DAILY 04/08/22 07/21/24 History acidophilus-Bifidobac.animalis 2.5 billion cell capsule (Daily Probiotic) alprazolam 0.5 mg tablet 0.25 mg PO PRN PRN Anxiety 04/08/22 07/21/24 History ibuprofen 600 mg tablet 600 mg PO Q6H PRN Pain 04/08/22 07/21/24 History magnesium citrate (Citrate of 150 ml PO DAILY 12/18/23 07/21/24 History Magnesia oral) tizanidine 4 mg tablet 4 mg PO Q8H PRN Muscle Spasm #30 04/13/24 07/21/24 Rx tabs Laboratory Tests 07/22/24 07:42 POC Urine HCG, Qual Negative (Negative) Patient hx anesthesia problems: none Family hx anesthesia problems: none Results Review: All pre-operative results and documents have been reviewed as part of the pre-operative evaluation. [facility] Past Medical History Medical History Rectal pain, chronic Perforation of sigmoid colon due to diverticulitis Diverticulitis Anxiety Diverticulosis Surgical History Surgical History History of colectomy laparoscopic sigmoid colectomy with colorectal anastomosis, Darlene assisted 04/16/22 History of cholecystectomy Family History Family History Grandparent Cerebrovascular accident Family history of lung cancer Father No problems noted. Mother Hypertension Sibling No problems noted. Other Family history of arthritis Social History Social History Social History: Surrogate medical decision maker: Terrell Molina, spouse. Code status: Full code. Smoking status: Never smoker Second hand tobacco smoke exposure: No Alcohol intake: current Drinks per week: 6 Alcohol use details: socially on weekend Substance use: never Substance use type: other Other substance usage details: gummies for pain/sleep Lack of Transportation: No Lack of Food: Never True Current Housing: I Have Housing Concerned About Future Housing: No Difficulty Paying Gas/Electric Bills: No Difficulty Paying for Meds: No Currently Unemployed: No Education: Associate Degree Difficulty w/ Childcare or Family Care: No Living arrangements: with family Additional living arrangements comments: Lives in [place] with her and 2 children. 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: No Anes - Eval Final PreProcedure Day of Procedure 07/22/24 08:05 Patient weight: overweight Heart: regular rate and rhythm Lungs: clear to auscultation Airway: Mallampati scale class II Neurological: alert and oriented Last oral intake: >/= 8 hours ASA classification: III Emergent: no Anesthetic plan: proceed Anesthesia type and monitoring: general GIVS and standard monitoring Results Review: All pre-operative results and documents have been reviewed as part of the pre-operative evaluation. Informed Consent: The patient's anesthetic plan and its attendant risks and benefits were discussed with the patient/family/POA. Questions were solicited and answers provided to the satisfaction of the patient/family/POA.
--- NOTE | 2024-07-22 08:16 | WPDHPUPDATE1 ---
History and Physical Update Update Date/Time: 07/22/24 08:16 History and Physical has been reviewed, including an updated exam of the patient. There are NO changes in the patient's condition. Risks, benefits, and alternatives have been discussed and questions answered. Patient agrees to proceed with procedure.
[2024-07-22 08:57] VITALS: BP 112/75; PULSE 66; RESP 18; O2SAT 100
[2024-07-22 09:07] VITALS: BP 108/71; PULSE 67; RESP 20; O2SAT 100
[2024-07-22 09:17] VITALS: BP 117/67; PULSE 67; RESP 25; O2SAT 100
== END 2024-07-22 09:25 | disposition home or self-care (01) ==
PROVIDERS: Anesthesiology; PCP Family Medicine; Visit Provider Surgery
PROC: 0DJD8ZZ Inspection of Lower Intestinal Tract, Via Natural or Artificial Opening Endoscopic (ICD-10-PCS; CPT 45378; principal; 2024-07-22 08:30)
DX: K62.89 Other specified diseases of anus and rectum (principal); K62.4 Stenosis of anus and rectum; F41.9 Anxiety disorder, unspecified; F12.90 Cannabis use, unspecified, uncomplicated; Z79.1 Long term (current) use of non-steroidal anti-inflammatories (NSAID); Z98.890 Other specified postprocedural states; Z90.49 Acquired absence of other specified parts of digestive tract; Z87.19 Personal history of other diseases of the digestive system; Z80.1 Family history of malignant neoplasm of trachea, bronchus and lung; Z82.49 Family history of ischemic heart disease and other diseases of the circulatory system
CPT/HCPCS: 45386; C1726; J2003; J2704; J7120

== ENCOUNTER 2024-12-31 09:14 | Outpatient (CLI) | payer OTHER, SELFPAY ==
--- NOTE | ~2024-12-31 | XR_ITS ---
EXAMINATION: XR hand RT 2V DATE: 12/31/2024 09:27 INDICATION: Pain in hand TECHNIQUE: 2 images of the right hand were obtained. COMPARISON: None. FINDINGS: Bone mineralization is within normal limits. No fracture. No dislocation. Minimal soft tissue swelling about the right hand. Minimal degenerative change in the first carpometacarpal joint and first metacarpophalangeal joint. IMPRESSION: 1. No fracture identified. 2. Minimal degenerative change in the first carpometacarpal joint and first metacarpophalangeal joint. Reviewed, dictated and finalized at location Q. IMPRESSION: 1. No fracture identified. 2. Minimal degenerative change in the first carpometacarpal joint and first met acarpophalangeal joint.
== END 2024-12-31 09:15 | disposition home or self-care (01) ==
LOC: MICIMG 09:15
PROVIDERS: PCP Family Medicine; Visit Provider Nurse Practitioner Family
DX: M79.641 Pain in right hand (principal)
CPT/HCPCS: 73120

== ENCOUNTER 2025-04-19 15:13 | Outpatient (CLI) | payer OTHER, SELFPAY ==
--- NOTE | ~2025-04-19 | MR_ITS ---
EXAM/PROCEDURE: MR hand RT wo con HISTORY: Sprain of metacarpophalangeal joint of right thumb, initial COMPARISON: None available. TECHNIQUE: Multiplanar noncontrast imaging of the right hand thumb metacarpophalangeal joint. FINDINGS: On the sagittal T2-weighted sequences, obliquely oriented fracture through the dorsal base of the proximal phalanx of the thumb with slight displacement noted. On the coronal series 7, image 12, the disruption appears to be more ligamentous with ligamentous tear in the area close proximity to the distal attachment. The ulnar collateral ligament appears intact. The remainder of the bones appear intact. Mild edematous changes present in the volar soft tissues. IMPRESSION: Findings consistent with a avulsion of the thumb carpometacarpal radial collateral ligament. On the coronal images, the disruption appears to be ligamentous at its distal attachment; on the sagittal image, the ligament appears intact with avulsed with a small bony fragment. If patient is managed surgically, consider CT examination through this area to confirm bony avulsion. Reviewed, dictated and finalized at location A. ZEL TWISTER IMPRESSION: Findings consistent with a avulsion of the thumb carpometacarpal ra dial collateral ligament. On the coronal images, the disruption appears to be l igamentous at its distal attachment; on the sagittal image, the ligament appear s intact with avulsed with a small bony fragment. If patient is managed surgica lly, consider CT examination through this area to confirm bony avulsion.
== END 2025-04-19 15:14 | disposition home or self-care (01) ==
PROVIDERS: PCP Family Medicine; Visit Provider Plastic Surgery
DX: S63.641A Sprain of metacarpophalangeal joint of right thumb, initial encounter (principal); X58.XXXA Exposure to other specified factors, initial encounter
CPT/HCPCS: 73218